=== PATIENT | female | born 1950 | race Hispanic/Latino ===

== ENCOUNTER 2022-05-02 09:05 | Inpatient (IN) | payer MEDICARE ==
[2022-05-02] MEDS ORDERED: SODIUM CHLORIDE 0.9% 500 ML 500 ML IV ONE ×2 (10:11→12:40)
--- NOTE | 2022-05-02 10:15 | Emergency Department Report ---
HPI - General Chief Complaint: GI Bleed Time Seen by Provider: 05/02/22 09:58 - HPI HPI: Room 25 The patient is a 71-year-old female present with chief complaint of GI bleed. Patient is resident of [facility] was sent for coffee-ground emesis and blood in her stool which began this morning. Patient also complains of diffuse abdominal pain which also began this morning. Patient denies chest pain or shortness of breath. Of note patient had a recent CABG but states she does not recall at which hospital it was performed ED Past Medical Hx - Past Medical History Hx Heart Attack/AMI: Yes - Surgical History Hx Open Heart Surgery: Yes (CABG) Additional Surgical History: Feeding tube, knee surgery - Family History Family history: no significant - Social History Smoking Status: Never Smoker Substance Use Type: None ED Review of Systems ROS: Stated complaint: NAUSEA/VOMITTING Other details as noted in HPI Constitutional: no symptoms reported Eyes: denies: eye pain ENT: denies: throat pain Respiratory: denies: shortness of breath Cardiovascular: denies: chest pain Endocrine: no symptoms reported Gastrointestinal: abdominal pain, nausea, vomiting, hematemesis, hematochezia Genitourinary: denies: dysuria Musculoskeletal: denies: back pain Neurological: denies: headache Physical Exam - Physical Exam Vital Signs: Vital Signs 05/02/22 09:36 Temperature 97.5 F L Pulse Rate 105 H Respiratory 18 Rate Blood Pressure 105/75 [Left] O2 Sat by Pulse 96 Oximetry Physical Exam: GENERAL: The patient is well-developed well-nourished female lying on stretcher not appearing to be in acute distress. [] HEENT: Normocephalic. Atraumatic. Extraocular motions are intact. Patient has moist mucous membranes. NECK: Supple. Trachea midline CHEST/LUNGS: Clear to auscultation. There is no respiratory distress noted. HEART/CARDIOVASCULAR: Regular. There is no tachycardia. There is no gallop rub or murmur. ABDOMEN: Abdomen is soft, with diffuse discomfort to palpation. Patient has normal bowel sounds. There is no abdominal distention. SKIN: There is no rash. There is no edema. There is no diaphoresis. NEURO: The patient is awake, alert, and oriented. The patient is cooperative. The patient has no focal neurologic deficits. The patient has normal speech. GCS 15 MUSCULOSKELETAL: There is no evidence of acute injury. 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 Suggests obtaining previous EKG from outside hospital 05/02/22 14:33 Case discussed with allied health professional Dr. Carl ED Medical Decision Making - Lab Data Result diagrams: 05/02/22 10:39 05/02/22 10:39 Laboratory Tests 05/02/22 05/02/22 05/02/22 10:19 10:39 10:39 WBC 15.3 H RBC 4.97 Hgb 14.9 H Hct 49.4 H MCV 99 H MCH 30 MCHC 30 RDW 16.6 H Plt Count 266 Add Manual Diff Complete Total Counted 100 Seg Neutrophils % Pole Framer Machine Seg Neuts % (Manual) 92.0 H Band Neutrophils % 2.0 Lymphocytes % (Manual) 2.0 L Reactive Lymphs % (Man) 0 Monocytes % (Manual) 4.0 Eosinophils % (Manual) 0 Basophils % (Manual) 0 Metamyelocytes % 0 Myelocytes % 0 Promyelocytes % 0 Blast Cells % 0 Nucleated RBC % Not Reportable Seg Neutrophils # Man 14.1 H Band Neutrophils # 0.3 Lymphocytes # (Manual) 0.3 L Abs React Lymphs (Man) 0.0 Monocytes # (Manual) 0.6 Eosinophils # (Manual) 0.0 Basophils # (Manual) 0.0 Metamyelocytes # 0.0 Myelocytes # 0.0 Promyelocytes # 0.0 Blast Cells # 0.0 WBC Morphology Not Reportable Hypersegmented Neuts Not Reportable Hyposegmented Neuts Not Reportable Hypogranular Neuts Not Reportable Smudge Cells Not Reportable Toxic Granulation Not Reportable Toxic Vacuolation Not Reportable Dohle Bodies Not Reportable Pelger-Huet Anomaly Not Reportable Neela Rods Not Reportable Platelet Estimate Consistent w auto Clumped Platelets Not Reportable Plt Clumps, EDTA Not Reportable Large Platelets Not Reportable Giant Platelets Not Reportable Platelet Satelliting Not Reportable Plt Morphology Comment Not Reportable RBC Morphology Not Reportable Dimorphic RBCs Not Reportable Polychromasia Not Reportable Hypochromasia Not Reportable Poikilocytosis Not Reportable Anisocytosis 1+ Microcytosis Not Reportable Macrocytosis Not Reportable Spherocytes Not Reportable Pappenheimer Bodies Not Reportable Sickle Cells Not Reportable Target Cells Not Reportable Tear Drop Cells Not Reportable Ovalocytes Not Reportable Helmet Cells Not Reportable Malhotra-Lilly Bodies Not Reportable [place] Rings Not Reportable Torreon Cells Not Reportable Bite Cells Not Reportable Crenated Cell Not Reportable Elliptocytes Not Reportable Acanthocytes (Spur) Not Reportable Rouleaux Not Reportable Hemoglobin C Crystals Not Reportable Schistocytes Not Reportable Malaria parasites Not Reportable Nitin Bodies Not Reportable Hem Pathologist Commnt No PT 23.7 H INR 1.81 H APTT 36.1 Sodium Potassium Chloride Carbon Dioxide Anion Gap BUN Creatinine Estimated GFR BUN/Creatinine Ratio Glucose Calcium Total Bilirubin AST ALT Alkaline Phosphatase Total Protein Albumin Albumin/Globulin Ratio Blood Type O NEGATIVE Antibody Screen Negative 05/02/22 10:39 WBC RBC Hgb Hct MCV MCH MCHC RDW Plt Count Add Manual Diff Total Counted Seg Neutrophils % Seg Neuts % (Manual) Band Neutrophils % Lymphocytes % (Manual) Reactive Lymphs % (Man) Monocytes % (Manual) Eosinophils % (Manual) Basophils % (Manual) Metamyelocytes % Myelocytes % Promyelocytes % Blast Cells % Nucleated RBC % Seg Neutrophils # Man Band Neutrophils # Lymphocytes # (Manual) Abs React Lymphs (Man) Monocytes # (Manual) Eosinophils # (Manual) Basophils # (Manual) Metamyelocytes # Myelocytes # Promyelocytes # Blast Cells # WBC Morphology Hypersegmented Neuts Hyposegmented Neuts Hypogranular Neuts Smudge Cells Toxic Granulation Toxic Vacuolation Dohle Bodies Pelger-Huet Anomaly Neela Rods Platelet Estimate Clumped Platelets Plt Clumps, EDTA Large Platelets Giant Platelets Platelet Satelliting Plt Morphology Comment RBC Morphology Dimorphic RBCs Polychromasia Hypochromasia Poikilocytosis Anisocytosis Microcytosis Macrocytosis Spherocytes Pappenheimer Bodies Sickle Cells Target Cells Tear Drop Cells Ovalocytes Helmet Cells Malhotra-Lilly Bodies [place] Rings Nicholas Cells Bite Cells Crenated Cell Elliptocytes Acanthocytes (Spur) Rouleaux Hemoglobin C Crystals Schistocytes Malaria parasites Nitin Bodies Hem Pathologist Commnt PT INR APTT Sodium 140 Potassium 3.5 L Chloride 102.0 Carbon Dioxide 18 L Anion Gap 24 BUN 30 H Creatinine 1.0 Estimated GFR 54 BUN/Creatinine Ratio 30 Glucose 130 H Calcium 9.6 Total Bilirubin 0.50 AST 19 ALT 9 Alkaline Phosphatase 102 Total Protein 5.6 L Albumin 3.5 L Albumin/Globulin Ratio 1.7 Blood Type Antibody Screen - EKG Data -: EKG Interpreted by Me EKG shows normal: sinus rhythm Rate: normal - EKG Data When compared to previous EKG there are: previous EKG unavailable Interpretation: nonspecific ST-T wave yovani - Differential Diagnosis GI bleed Critical care attestation.: If time is entered above; I have spent that time in minutes in the direct care of this critically ill patient, excluding procedure time. ED Disposition Clinical Impression: GI bleed Disposition: 09 ADMITTED INPATIENT Is pt being admited?: Yes Does the pt Need Aspirin: No Condition: Fair Referrals: ABRAHAM BROOKS MD [Primary Care Provider] - 3-5 Days Forms: Accompanied Note Time of Disposition: 14:34 (Care transferred to hospitalist (Dr. Escobar))
[2022-05-02 11:28] LABS: INR 1.81 (0.87-1.13); Partial Thromboplastin Time 36.1 Sec. (24.2-36.6)
[2022-05-02 11:29] LABS: Mean Corpuscular HGB Conc 30 % (30-34); Mean Corpuscular Volume 99 fl (79-97); Platelet Count 266 K/mm3 (140-440); Red Blood Count 4.97 M/mm3 (3.65-5.03); Red Cell Distribution Width 16.6 % (13.2-15.2)
[2022-05-02 11:30] LABS: Hematocrit 49.4 % (30.3-42.9); Hemoglobin 14.9 gm/dl (10.1-14.3)
[2022-05-02] MEDS ORDERED: MORPHINE 4 MG/1 ML INJ IV ONE (11:35)
[2022-05-02] MEDS ORDERED: ONDANSETRON 4 MG/2 ML INJ IV ONE (11:35)
[2022-05-02 11:39] LABS: Albumin 3.5 g/dL (3.9-5); Calcium 9.6 mg/dL (8.4-10.2)
[2022-05-02 12:35] LABS: Band Neutrophils # (Manual) 0.3 K/mm3; Basophils % (Manual) 0 % (0.0-1.8); Eosinophils % (Manual) 0 % (0.0-4.3); Total Cells Counted 100
[2022-05-02 12:36] LABS: Anisocytosis 1+; Platelet Estimate Consistent w Auto
[2022-05-02] MEDS ORDERED: PANTOPRAZOLE 40 MG INJ IV ONE (14:32)
[2022-05-02] MEDS ORDERED: ONDANSETRON 4 MG/2 ML INJ IV PRN (14:56)
[2022-05-02] MEDS ORDERED: MORPHINE 2 MG/1 ML INJ IV PRN (14:56)
[2022-05-02] MEDS ORDERED: ACETAMINOPHEN 325 MG TAB PO PRN ×2 (14:56→17:59)
--- NOTE | 2022-05-02 17:58 | History and Physical Report ---
History of Present Illness Date of examination: 05/02/22 Date of admission: 05/02/2024 Chief complaint: Vomiting blood since a.m. History of present illness: The patient is a 71-year-old female present with chief complaint of GI bleed. Patient is resident of [facility] was sent for coffee-ground emesis and blood in her stool which began this morning. Patient also complains of diffuse abdominal pain which also began this morning. Patient denies chest pain or s hortness of breath. Of note patient had a recent CABG but states she does not recall at which hospital it was performed - Past Medical History Hx Heart Attack/AMI: Yes - Surgical History Hx Open Heart Surgery: Yes (CABG) Additional Surgical History: Feeding tube, knee surgery - Family History Family history: no significant - Social History Smoking Status: Never Smoker Substance Use Type: None Review of Systems ROS: Stated complaint: NAUSEA/VOMITTING Other details as noted in HPI Constitutional: no symptoms reported Eyes: denies: eye pain ENT: denies: throat pain Respiratory: denies: shortness of breath Cardiovascular: denies: chest pain Endocrine: no symptoms reported Gastrointestinal: abdominal pain, nausea, vomiting, hematemesis, hematochezia Genitourinary: denies: dysuria Musculoskeletal: denies: back pain Neurological: denies: headache Medications and Allergies Allergies Allergy/AdvReac Type Severity Reaction Status Date / Time No Known Allergies Allergy Unverified 05/02/22 10:27 Active Meds: Active Medications Acetaminophen (Acetaminophen 325 Mg Tab) 650 mg PO Q4H PRN PRN Reason: Pain MILD(1-3)/Fever >100.5/RAMIREZ Pantoprazole Sodium 80 mg/ (Sodium Chloride) 100 mls @ 10 mls/hr IV DIRECT RENE Morphine Sulfate (Morphine 2 Mg/1 Ml Inj) 2 mg IV Q4H PRN PRN Reason: Pain, Moderate (4-6) Ondansetron HCl (Ondansetron 4 Mg/2 Ml Inj) 4 mg IV Q8H PRN PRN Reason: Nausea And Vomiting Sodium Chloride (Sodium Chloride 0.9% 10 Ml Flush Syringe) 10 ml IV BID RENE Sodium Chloride (Sodium Chloride 0.9% 10 Ml Flush Syringe) 10 ml IV PRN PRN PRN Reason: LINE FLUSH Exam - Constitutional Vitals: Temp Pulse Resp BP Pulse Ox 97.5 F L 97 H 18 103/63 95 05/02/22 09:36 05/02/22 15:00 05/02/22 15:00 05/02/22 15:00 05/02/22 15:00 General appearance: Present: no acute distress, well-nourished - EENT Eyes: Present: PERRL ENT: hearing intact, clear oral mucosa - Neck Neck: Present: supple, normal ROM - Respiratory Respiratory effort: normal Respiratory: bilateral: CTA - Cardiovascular Heart rate: 78 Rhythm: regular Heart Sounds: Present: S1 & S2. Absent: rub, click - Extremities Extremities: pulses symmetrical, No edema Peripheral Pulses: within normal limits - Abdominal General gastrointestinal: Present: soft, non-tender, non-distended, normal bowel sounds Female genitourinary: Present: normal - Integumentary Integumentary: Present: clear, warm, dry - Musculoskeletal Musculoskeletal: gait normal, strength equal bilaterally - Psychiatric Psychiatric: appropriate mood/affect, intact judgment & insight - Neurologic Neurologic: CNII-XII intact, moves all extremities - Allied Health Allied health notes reviewed: nursing, case management Results - Labs CBC & Chem 7: 05/02/22 20:26 05/02/22 10:39 Labs: Laboratory Last Values WBC 15.3 K/mm3 (4.5-11.0) H 05/02/22 10:39 RBC 4.97 M/mm3 (3.65-5.03) 05/02/22 10:39 Hgb 14.9 gm/dl (10.1-14.3) H 05/02/22 10:39 Hct 49.4 % (30.3-42.9) H 05/02/22 10:39 MCV 99 fl (79-97) H 05/02/22 10:39 MCH 30 pg (28-32) 05/02/22 10:39 MCHC 30 % (30-34) 05/02/22 10:39 RDW 16.6 % (13.2-15.2) H 05/02/22 10:39 Plt Count 266 K/mm3 (140-440) 05/02/22 10:39 Add Manual Diff Complete 05/02/22 10:39 Total Counted 100 05/02/22 10:39 Seg Neutrophils % Welder Assembler 05/02/22 10:39 Seg Neuts % (Manual) 92.0 % (40.0-70.0) H 05/02/22 10:39 Band Neutrophils % 2.0 % 05/02/22 10:39 Lymphocytes % (Manual) 2.0 % (13.4-35.0) L 05/02/22 10:39 Reactive Lymphs % (Man) 0 % 05/02/22 10:39 Monocytes % (Manual) 4.0 % (0.0-7.3) 05/02/22 10:39 Eosinophils % (Manual) 0 % (0.0-4.3) 05/02/22 10:39 Basophils % (Manual) 0 % (0.0-1.8) 05/02/22 10:39 Metamyelocytes % 0 % 05/02/22 10:39 Myelocytes % 0 % 05/02/22 10:39 Promyelocytes % 0 % 05/02/22 10:39 Blast Cells % 0 % 05/02/22 10:39 Nucleated RBC % Not Reportable 05/02/22 10:39 Seg Neutrophils # Man 14.1 K/mm3 (1.8-7.7) H 05/02/22 10:39 Band Neutrophils # 0.3 K/mm3 05/02/22 10:39 Lymphocytes # (Manual) 0.3 K/mm3 (1.2-5.4) L 05/02/22 10:39 Abs React Lymphs (Man) 0.0 K/mm3 05/02/22 10:39 Monocytes # (Manual) 0.6 K/mm3 (0.0-0.8) 05/02/22 10:39 Eosinophils # (Manual) 0.0 K/mm3 (0.0-0.4) 05/02/22 10:39 Basophils # (Manual) 0.0 K/mm3 (0.0-0.1) 05/02/22 10:39 Metamyelocytes # 0.0 K/mm3 05/02/22 10:39 Myelocytes # 0.0 K/mm3 05/02/22 10:39 Promyelocytes # 0.0 K/mm3 05/02/22 10:39 Blast Cells # 0.0 K/mm3 05/02/22 10:39 WBC Morphology Not Reportable 05/02/22 10:39 Hypersegmented Neuts Not Reportable 05/02/22 10:39 Hyposegmented Neuts Not Reportable 05/02/22 10:39 Hypogranular Neuts Not Reportable 05/02/22 10:39 Smudge Cells Not Reportable 05/02/22 10:39 Toxic Granulation Not Reportable 05/02/22 10:39 Toxic Vacuolation Not Reportable 05/02/22 10:39 Dohle Bodies Not Reportable 05/02/22 10:39 Pelger-Huet Anomaly Not Reportable 05/02/22 10:39 Neela Rods Not Reportable 05/02/22 10:39 Platelet Estimate Consistent w auto 05/02/22 10:39 Clumped Platelets Not Reportable 05/02/22 10:39 Plt Clumps, EDTA Not Reportable 05/02/22 10:39 Large Platelets Not Reportable 05/02/22 10:39 Giant Platelets Not Reportable 05/02/22 10:39 Platelet Satelliting Not Reportable 05/02/22 10:39 Plt Morphology Comment Not Reportable 05/02/22 10:39 RBC Morphology Not Reportable 05/02/22 10:39 Dimorphic RBCs Not Reportable 05/02/22 10:39 Polychromasia Not Reportable 05/02/22 10:39 Hypochromasia Not Reportable 05/02/22 10:39 Poikilocytosis Not Reportable 05/02/22 10:39 Anisocytosis 1+ 05/02/22 10:39 Microcytosis Not Reportable 05/02/22 10:39 Macrocytosis Not Reportable 05/02/22 10:39 Spherocytes Not Reportable 05/02/22 10:39 Pappenheimer Bodies Not Reportable 05/02/22 10:39 Sickle Cells Not Reportable 05/02/22 10:39 Target Cells Not Reportable 05/02/22 10:39 Tear Drop Cells Not Reportable 05/02/22 10:39 Ovalocytes Not Reportable 05/02/22 10:39 Helmet Cells Not Reportable 05/02/22 10:39 Malhotra-Noonday Bodies Not Reportable 05/02/22 10:39 [place] Rings Not Reportable 05/02/22 10:39 Nicholas Cells Not Reportable 05/02/22 10:39 Bite Cells Not Reportable 05/02/22 10:39 Crenated Cell Not Reportable 05/02/22 10:39 Elliptocytes Not Reportable 05/02/22 10:39 Acanthocytes (Spur) Not Reportable 05/02/22 10:39 Rouleaux Not Reportable 05/02/22 10:39 Hemoglobin C Crystals Not Reportable 05/02/22 10:39 Schistocytes Not Reportable 05/02/22 10:39 Malaria parasites Not Reportable 05/02/22 10:39 Nitin Bodies Not Reportable 05/02/22 10:39 Hem Pathologist Commnt No 05/02/22 10:39 PT 23.7 Sec. (12.2-14.9) H 05/02/22 10:39 INR 1.81 (0.87-1.13) H 05/02/22 10:39 APTT 36.1 Sec. (24.2-36.6) 05/02/22 10:39 Sodium 140 mmol/L (137-145) 05/02/22 10:39 Potassium 3.5 mmol/L (3.6-5.0) L 05/02/22 10:39 Chloride 102.0 mmol/L (98-107) 05/02/22 10:39 Carbon Dioxide 18 mmol/L (22-30) L 05/02/22 10:39 Anion Gap 24 mmol/L 05/02/22 10:39 BUN 30 mg/dL (7-17) H 05/02/22 10:39 Creatinine 1.0 mg/dL (0.6-1.2) 05/02/22 10:39 Estimated GFR 54 ml/min 05/02/22 10:39 BUN/Creatinine Ratio 30 % 05/02/22 10:39 Glucose 130 mg/dL (65-100) H 05/02/22 10:39 Calcium 9.6 mg/dL (8.4-10.2) 05/02/22 10:39 Total Bilirubin 0.50 mg/dL (0.1-1.2) 05/02/22 10:39 AST 19 units/L (5-40) 05/02/22 10:39 ALT 9 units/L (7-56) 05/02/22 10:39 Alkaline Phosphatase 102 units/L (35-129) 05/02/22 10:39 Total Protein 5.6 g/dL (6.3-8.2) L 05/02/22 10:39 Albumin 3.5 g/dL (3.9-5) L 05/02/22 10:39 Albumin/Globulin Ratio 1.7 % 05/02/22 10:39 Blood Type O NEGATIVE 05/02/22 10:19 Antibody Screen Negative 05/02/22 10:19 Microbiology: Microbiology 05/02/22 Unknown Stool Stool Occult Blood (TACOS) - Final Assessment and Plan Advance Directives: Yes (Full code) VTE prophylaxis?: Mechanical Plan of care discussed with patient/family: Yes - Patient Problems (1) GI bleed Current Visit: Yes Status: Acute Plan to address problem: Patient initiated on IV Protonix drip IV fluids and GI consult requested Serial hemoglobin and hematocrit every 8 hours (2) Hypokalemia Current Visit: Yes Status: Acute Plan to address problem: Mild Supplemented (3) Coronary artery disease Current Visit: Yes Status: Chronic Qualifiers: Coronary Disease-Associated Artery/Lesion type: [place] artery [place] vs. transplanted heart: [place] heart Associated angina: without angina Qualified Code(s): I25.10 - Atherosclerotic heart disease of [place] coronary artery without angina pectoris Plan to address problem: Hold aspirin for now (4) Malnutrition Current Visit: Yes Status: Acute Qualifiers: Protein-calorie malnutrition severity: mild Plan to address problem: Albumin of 3.5 Dietary supplements once the patient starts eating (5) DVT prophylaxis Current Visit: Yes Status: Acute Plan to address problem: On SCDs and GI prophylaxis (6) Advance care planning Current Visit: Yes Status: Acute Plan to address problem: Disease education conducted, care plan discussed, diagnosis and prognosis discussed. Patient is full code. Patient acknowledged understanding of care plan. +30 minutes.
[2022-05-02] MEDS: PANTOPRAZOLE 80 MG in SODIUM CHLORIDE 0.9% 100 ML IV SCH (18:14)
[2022-05-02] MEDS ORDERED: SODIUM CHLORIDE 0.9% 1000 ML 1,000 ML IV SCH (18:15)
--- NOTE | 2022-05-02 19:18 | Gastroenterology Consultation ---
History of Present Illness - Reason for Consult Consult date: 05/02/22 GI bleed Requesting physician: ESTEBAN CALIXTO - History of Present Illness This is a 71-year-old female with history of tobacco abuse, recent RCA STEMI and emergent CABG at [facility] in March 2022. Presenting from detention today for symptoms of GI bleed including coffee-ground emesis. Review of outside records shows patient was admitted [facility] in February 2022 for RCA STEMI and underwent emergent CABG. Hospital course complicated with cardiogenic shock and sepsis. Patient under went tracheostomy as well as PEG placement for prolonged respiratory failure. Patient also noted to have had C. difficile infection during the hospitalization. Patient underwent percutaneous endoscopic gastrostomy on March 18, 2022 for prolonged respiratory failure. Findings showed gastritis without focal ulceration or erosions. Normal duodenum and normal esophagus noted. Today patient reports having intermittent nausea even during the initial hospitalization with CABG. Noted to also have black tarry stool yesterday. In the emergency room, patient noted to have recurrent episode of coffee-ground emesis this evening. Patient complains of diffuse abdominal pain. Per patient, no prior history of colonoscopy. Medication list reviewed. Past History Past Medical History: CAD Past Surgical History: CABG Social history: other (detention) Family history: hypertension Medications and Allergies Allergies Allergy/AdvReac Type Severity Reaction Status Date / Time No Known Allergies Allergy Unverified 05/02/22 10:27 Active Meds: Active Medications Acetaminophen (Acetaminophen 325 Mg Tab) 650 mg PO Q4H PRN PRN Reason: Pain MILD(1-3)/Fever >100.5/RAMIREZ Acetaminophen (Acetaminophen 325 Mg Tab) 650 mg PO Q4H PRN PRN Reason: Pain MILD(1-3)/Fever >100.5/RAMIREZ Pantoprazole Sodium 80 mg/ (Sodium Chloride) 100 mls @ 10 mls/hr IV DIRECT RENE Last Admin: 05/02/22 18:14 Dose: 8 mg/hr, 10 mls/hr Sodium Chloride (Nacl 0.9% 1000 Ml) 1,000 mls @ 75 mls/hr IV DIRECT RENE Morphine Sulfate (Morphine 2 Mg/1 Ml Inj) 2 mg IV Q4H PRN PRN Reason: Pain, Moderate (4-6) Ondansetron HCl (Ondansetron 4 Mg/2 Ml Inj) 4 mg IV Q8H PRN PRN Reason: Nausea And Vomiting Ondansetron HCl (Ondansetron 4 Mg/2 Ml Inj) 4 mg IV Q3H PRN PRN Reason: Nausea And Vomiting Sodium Chloride (Sodium Chloride 0.9% 10 Ml Flush Syringe) 10 ml IV BID RENE Sodium Chloride (Sodium Chloride 0.9% 10 Ml Flush Syringe) 10 ml IV PRN PRN PRN Reason: LINE FLUSH Sodium Chloride (Sodium Chloride 0.9% 10 Ml Flush Syringe) 10 ml IV BID RENE Sodium Chloride (Sodium Chloride 0.9% 10 Ml Flush Syringe) 10 ml IV PRN PRN PRN Reason: LINE FLUSH Review of Systems - Review of Systems Constitutional: weakness, poor appetite Ears, Nose, Throat: no difficulty swallowing Cardiovascular: no chest pain Gastrointestinal: abdominal pain, nausea, vomiting, melena, no hematochezia Neurological: weakness Psychiatric: anxiety Hematologic/Lymphatic: easy bruising, no easy bleeding Allergic/Immunologic: no wheezing, no angioedema Exam - Constitutional Vital Signs: Temp Pulse Resp BP Pulse Ox 97.5 F L 94 H 20 113/72 96 05/02/22 09:36 05/02/22 18:00 05/02/22 18:00 05/02/22 18:00 05/02/22 18:00 General appearance: mild distress - EENT ENT: hearing intact - Neck Neck: supple, other (Prior tracheostomy site in place) - Respiratory Respiratory effort: normal - Cardiovascular Rhythm: regular Heart Sounds: Present: S1 & S2 - Gastrointestinal General gastrointestinal: Present: soft, tender, non-distended - Integumentary Integumentary: Present: clear, warm - Neurologic Neurological: alert and oriented x3 - Psychiatric Psychiatric: appropriate mood/affect - Labs CBC & Chem 7: 05/02/22 10:39 05/02/22 10:39 Lab Results: Laboratory Results - last 24 hr 05/02/22 05/02/22 05/02/22 10:19 10:39 10:39 WBC 15.3 H RBC 4.97 Hgb 14.9 H Hct 49.4 H MCV 99 H MCH 30 MCHC 30 RDW 16.6 H Plt Count 266 Add Manual Diff Complete Total Counted 100 Seg Neutrophils % Turret Press Operator Seg Neuts % (Manual) 92.0 H Band Neutrophils % 2.0 Lymphocytes % (Manual) 2.0 L Reactive Lymphs % (Man) 0 Monocytes % (Manual) 4.0 Eosinophils % (Manual) 0 Basophils % (Manual) 0 Metamyelocytes % 0 Myelocytes % 0 Promyelocytes % 0 Blast Cells % 0 Nucleated RBC % Not Reportable Seg Neutrophils # Man 14.1 H Band Neutrophils # 0.3 Lymphocytes # (Manual) 0.3 L Abs React Lymphs (Man) 0.0 Monocytes # (Manual) 0.6 Eosinophils # (Manual) 0.0 Basophils # (Manual) 0.0 Metamyelocytes # 0.0 Myelocytes # 0.0 Promyelocytes # 0.0 Blast Cells # 0.0 WBC Morphology Not Reportable Hypersegmented Neuts Not Reportable Hyposegmented Neuts Not Reportable Hypogranular Neuts Not Reportable Smudge Cells Not Reportable Toxic Granulation Not Reportable Toxic Vacuolation Not Reportable Dohle Bodies Not Reportable Pelger-Huet Anomaly Not Reportable Neela Rods Not Reportable Platelet Estimate Consistent w auto Clumped Platelets Not Reportable Plt Clumps, EDTA Not Reportable Large Platelets Not Reportable Giant Platelets Not Reportable Platelet Satelliting Not Reportable Plt Morphology Comment Not Reportable RBC Morphology Not Reportable Dimorphic RBCs Not Reportable Polychromasia Not Reportable Hypochromasia Not Reportable Poikilocytosis Not Reportable Anisocytosis 1+ Microcytosis Not Reportable Macrocytosis Not Reportable Spherocytes Not Reportable Pappenheimer Bodies Not Reportable Sickle Cells Not Reportable Target Cells Not Reportable Tear Drop Cells Not Reportable Ovalocytes Not Reportable Helmet Cells Not Reportable Malhotra-[place] Bodies Not Reportable [place] Rings Not Reportable Nicholas Cells Not Reportable Bite Cells Not Reportable Crenated Cell Not Reportable Elliptocytes Not Reportable Acanthocytes (Spur) Not Reportable Rouleaux Not Reportable Hemoglobin C Crystals Not Reportable Schistocytes Not Reportable Malaria parasites Not Reportable Nitin Bodies Not Reportable Hem Pathologist Commnt No PT 23.7 H INR 1.81 H APTT 36.1 Sodium Potassium Chloride Carbon Dioxide Anion Gap BUN Creatinine Estimated GFR BUN/Creatinine Ratio Glucose Calcium Total Bilirubin AST ALT Alkaline Phosphatase Total Protein Albumin Albumin/Globulin Ratio Blood Type O NEGATIVE Antibody Screen Negative 05/02/22 10:39 WBC RBC Hgb Hct MCV MCH MCHC RDW Plt Count Add Manual Diff Total Counted Seg Neutrophils % Seg Neuts % (Manual) Band Neutrophils % Lymphocytes % (Manual) Reactive Lymphs % (Man) Monocytes % (Manual) Eosinophils % (Manual) Basophils % (Manual) Metamyelocytes % Myelocytes % Promyelocytes % Blast Cells % Nucleated RBC % Seg Neutrophils # Man Band Neutrophils # Lymphocytes # (Manual) Abs React Lymphs (Man) Monocytes # (Manual) Eosinophils # (Manual) Basophils # (Manual) Metamyelocytes # Myelocytes # Promyelocytes # Blast Cells # WBC Morphology Hypersegmented Neuts Hyposegmented Neuts Hypogranular Neuts Smudge Cells Toxic Granulation Toxic Vacuolation Dohle Bodies Pelger-Huet Anomaly Neela Rods Platelet Estimate Clumped Platelets Plt Clumps, EDTA Large Platelets Giant Platelets Platelet Satelliting Plt Morphology Comment RBC Morphology Dimorphic RBCs Polychromasia Hypochromasia Poikilocytosis Anisocytosis Microcytosis Macrocytosis Spherocytes Pappenheimer Bodies Sickle Cells Target Cells Tear Drop Cells Ovalocytes Helmet Cells Malhotra-[place] Bodies [place] Rings Nicholas Cells Bite Cells Crenated Cell Elliptocytes Acanthocytes (Spur) Rouleaux Hemoglobin C Crystals Schistocytes Malaria parasites Nitin Bodies Hem Pathologist Commnt PT INR APTT Sodium 140 Potassium 3.5 L Chloride 102.0 Carbon Dioxide 18 L Anion Gap 24 BUN 30 H Creatinine 1.0 Estimated GFR 54 BUN/Creatinine Ratio 30 Glucose 130 H Calcium 9.6 Total Bilirubin 0.50 AST 19 ALT 9 Alkaline Phosphatase 102 Total Protein 5.6 L Albumin 3.5 L Albumin/Globulin Ratio 1.7 Blood Type Antibody Screen Assessment and Plan # Upper GI bleed - coffee ground emesis/melena -Recent CABG in February 2022 at [facility] complicated with prolonged respiratory failure status post trach and PEG placement. Currently not using the PEG tube for feeding. -Hemodynamically stable. -Differentials for GI bleed source including peptic ulcer disease, gastritis, esophagitis, Betina-Mccallum tear. Previous exam doing PEG placement showed gastritis but no findings in the esophagus or duodenum in March 2022. rec: -Continue with PPI IV drip. -Monitor for signs of active GI bleeding. -Monitor H&H serially and transfuse as needed. -Recommend CT abdomen pelvis for evaluation for abdominal pain. CT was ordered. -Recommend cardiology evaluation for cardiac clearance for endoscopy with sedation. -We will plan for EGD tomorrow. N.p.o. after midnight. - Patient Problems (1) GI bleed Current Visit: Yes Status: Acute
[2022-05-02 21:10] LABS: Hematocrit 47.2 % (30.3-42.9); Hemoglobin 15.1 gm/dl (10.1-14.3)
--- NOTE | 2022-05-02 21:55 | Cat Scan Report ---
CT ABDOMEN AND PELVIS WITH CONTRAST INDICATION / CLINICAL INFORMATION: GI bleed, abdominal pain. TECHNIQUE: Axial CT images were obtained through the abdomen and pelvis after 100 cc Omnipaque [address] scans at this location are performed using CT dose reduction for ALARA by means of automated exposure control. COMPARISON: None available. FINDINGS: LOWER CHEST: No significant abnormality. LIVER: Left hepatic lobe cysts measure up to 1.2 cm. No other significant abnormality. GALLBLADDER: Cholelithiasis is noted with mild distention of the gallbladder. Trace fluid is seen bea ng the gallbladder fundus. No significant wall thickening is identified. BILE DUCTS: There is moderate biliary ductal dilatation with the common duct measuring 18 mm on image 69 of series 2. Questionable choledocholithiasis is seen distally along the common bile duct. PANCREAS: No significant abnormality. SPLEEN: No significant abnormality. ADRENALS: There is adrenal hyperplasia without visualization of a suspicious nodule or mass. RIGHT KIDNEY/URETER: No significant abnormality. LEFT KIDNEY/URETER: No significant abnormality. STOMACH/SMALL BOWEL: There is an uncomplicated small hiatal hernia without other significant abnormal ities. There is expected positioning of a PEG tube. COLON: The colon contains a large amount of stool with secondary distention of the rectum and moderat e surrounding inflammation. No other significant abnormality. APPENDIX: No significant abnormality. PERITONEUM: No free fluid. No free air. No fluid collection. LYMPH NODES: No significant adenopathy. VASCULATURE: No acute findings. There is moderate atherosclerosis. URINARY BLADDER: A small amount of air within the bladder could be related to recent catheterization. No other significant abnormality. REPRODUCTIVE ORGANS: A probable small calcified uterine fibroid is seen posteriorly along the fundus. No other significant abnormality. ADDITIONAL FINDINGS: None. BONES: No acute findings. The bones are demineralized with moderate scoliosis and spondylosis. IMPRESSION: 1. Evidence of constipation with possible stercoral colitis. No evidence of an acute GI bleed. 2. Additional findings as above. Signer Name: Brien Burch MD Signed: 05/02/2022 9:51 PM Workstation Name: [id number]
[2022-05-03] MEDS: PANTOPRAZOLE 80 MG in SODIUM CHLORIDE 0.9% 100 ML IV SCH (03:30)
[2022-05-03 08:16] LABS: Hematocrit 46.7 % (30.3-42.9); Mean Corpuscular HGB Conc 32 % (30-34); Mean Corpuscular Volume 98 fl (79-97); Platelet Count 221 K/mm3 (140-440); Red Blood Count 4.76 M/mm3 (3.65-5.03); Red Cell Distribution Width 16.5 % (13.2-15.2)
[2022-05-03 08:25] LABS: INR 2.18 (0.87-1.13)
[2022-05-03 08:33] LABS: Calcium 8.5 mg/dL (8.4-10.2)
[2022-05-03] MEDS ORDERED: DEXTROSE 5% IN WATER 1,000 ML IV SCH (09:00)
--- NOTE | 2022-05-03 09:18 | Anesthesia Consultation ---
Anesthesia Consult and Med Hx Date of service: 05/03/22 - Airway Anesthetic Teeth Evaluation: Edentulous ROM Head & Neck: Adequate Mental/Hyoid Distance: Adequate Mallampati Class: Class II Intubation Access Assessment: Probably Good - Pre-Operative Health Status ASA Pre-Surgery Classification: ASA4 Proposed Anesthetic Plan: MAC - Pulmonary Hx Smoking: No Hx Asthma: No Hx Respiratory Symptoms: Yes (h/o respiratory failure, tracheostomy (03/30), trach removed later) SOB: Yes COPD: No Hx Pneumonia: Yes Hx Sleep Apnea: No - Cardiovascular System Hx Coronary Artery Disease: Yes Hx Heart Attack/AMI: Yes (Acute [place] in February 2022, s/p CABG) - Central Nervous System Hx Psychiatric Problems: Yes (panic attacks) - Gastrointestinal Hx Ulcer: Yes (PEG in place, GI bleed) - Endocrine Hx End Stage Renal Disease: No - Hematic Hx Anemia: No Hx Sickle Cell Disease: No - Other Systems Hx Alcohol Use: No Hx Substance Use: No Hx Cancer: No
--- NOTE | 2022-05-03 09:22 | Anesthesia Day of Surgery ---
Anesthesia Day of Surgery - Day of Surgery Patient Examined: Yes Patient H&P Reviewed: Yes Patient is NPO: Yes
[2022-05-03] MEDS ORDERED: propofoL 200 MG/20 ML VIAL IV ONE (09:25)
[2022-05-03] MEDS ORDERED: EPINEPHrine 1 MG/10 ML SYRINGE ONE (09:56)
[2022-05-03] MEDS ORDERED: SODIUM CHLORIDE 0.9% 1000 ML 1,000 ML ONE (09:56)
[2022-05-03] MEDS ORDERED: PHENYLEPHRINE/NS 1,000 MCG/10 ML SYRINGE (OR USE) IV ONE (10:11)
--- NOTE | 2022-05-03 10:52 | Electrocardiograph Report ---
[facility] Test Date: 2022-05-02 Test Time: 09:52:01 Pat Name: AUNDREA HATHAWAY Department: Room: A365 1 Gender: F Circuit Manager: NURSE : 1950 Requested By: ESTEBAN CALIXTO Order Number: [id number] Reading MD: Joce Abrams Measurements Intervals [place]win Rate: 128 P: 232 ID: [id number] QRS: -52 QRSD: 89 T: 228 QT: 335 QTc: 490 Interpretive Statements Ectopic atrial tachycardia Anterolateral infarct, age indeterminate Inferior infarct, age undetermined No previous ECG available for comparison Electronically Signed On 05-03-2022 10:52:16 EDT by Joce Abrams
--- NOTE | 2022-05-03 11:00 | Operative Report ---
Operative Report Operative Report: Date: 05/03/2022 Endoscopist: Peng Carl MD (Jenny) EGD REPORT PREOPERATIVE DIAGNOSIS: GI bleed, hematemesis POSTOPERATIVE DIAGNOSIS: Diffuse gastritis ESTIMATED BLOOD LOSS: Minimal DESCRIPTION OF PROCEDURE: A high-resolution EGD scope was passed through the oropharynx, esophagus, stomach, and second portion of duodenum. The scope was carefully withdrawn. Retroflexion was performed in the stomach. At the end of the procedure, the scope was cleaned using normal technique. Vital signs monitored continuously throughout. SEDATION: Provided by Anesthesiology Services. COMPLICATIONS: None. FINDINGS: 1. Normal esophagus exam without any gross abnormalities. 2. Diffuse erosive gastritis in the gastric body and fundus noted friable mucosa. Biopsies not obtained due to recent anticoagulation use. 3. Previously placed PEG tube noted in the gastric body. No surrounding ulceration or erosion noted. 4. Normal duodenal exam. 5. No signs of active bleeding. RECOMMENDATIONS: 1. Resume clear liquid diet. 2. Continue to monitor H&H serially and transfuse as needed. 3. Monitor for any signs of recurrent bleeding. 4. Continue with PPI IV. 5. Okay to resume anticoagulation as needed. 6. Check for H. pylori and treat as needed. Peng Carl MD (Jenny) [facility]
--- NOTE | 2022-05-03 11:05 | Post Anesthesia Evaluation ---
- Post Anesthesia Evaluation Patient Participated: Yes Airway Patent: Yes Stable Respiratory Function: Yes Nausea/Vomiting: No Temp > 96.8F: Yes Pain Manageable: Yes Adequeate Hydration: Yes Anesthesia Complications: No Block Receding Appropriately: Not Applicable Patient on Ventilator: No
[2022-05-03] MEDS ORDERED: WATER FOR IRRIG STERILE 1,000 ML BOTTLE ONE (11:07)
[2022-05-03] MEDS ORDERED: WATER FOR IRRIG STERILE 250 ML BOTTLE IR ONE (11:07)
[2022-05-03] MEDS: PANTOPRAZOLE 40 MG INJ IV SCH ×2 (12:00→22:03)
[2022-05-03 12:09] LABS: Hematocrit 46.4 % (30.3-42.9); Hemoglobin 14.6 gm/dl (10.1-14.3)
--- NOTE | 2022-05-03 13:16 | Progress Note ---
Assessment and Plan Assessment and plan: #Upper GI bleed #Hematemesis Hemoglobin 15.0 Gastroenterology consulted; appreciate recs Upper endoscopy (05/03/2022) revealing normal esophagus, diffuse erosive ga stritis in the gastric body and fundus with notable friable mucosa (biopsies not obtained due to recent anticoagulation use), normal duodenum, no signs of active bleeding. Continue IV pantoprazole 40 mg twice daily. Starting clear liquid diet. Testing for H. pylori. #INES secondary to vasomotor nephropathy Creatinine 1.5 (baseline unremarkable) Likely secondary to decreased p.o. intake. Renally dose meds and avoid nephrotoxic drugs. Encouraging p.o. intake. Monitor with repeat BMP tomorrow. #Hypokalemiaresolved Potassium currently 3.9 #Coronary artery disease We will restart aspirin when patient is on regular diet. #Mild protein caloric malnutrition Albumin 3.0 Starting dietary supplementation #Advanced care planning -Disease education conducted, care plan discussed, diagnoses discussed, prognosis discussed, and patient acknowledges understanding with care plan -Time: +30 min Disposition Plan: Continue medical management Total Time Spent with Patient (Minutes): 45 minutes History Interval history: No acute events overnight. Hospitalist Physical - Constitutional Vitals: Temp Pulse Resp BP Pulse Ox 98.8 F 50 L 24 154/65 98 05/03/22 11:22 05/03/22 11:22 05/03/22 11:22 05/03/22 11:22 05/03/22 11:22 General appearance: Present: no acute distress, well-nourished - EENT Eyes: Present: PERRL, EOM intact ENT: hearing intact, clear oral mucosa, dentition normal - Neck Neck: Present: supple, normal ROM - Respiratory Respiratory effort: normal Respiratory: bilateral: CTA - Cardiovascular Rhythm: regular Heart Sounds: Present: S1 & S2 - Extremities Extremities: no ischemia, pulses intact, pulses symmetrical, No edema, normal temperature, normal color Peripheral Pulses: within normal limits - Abdominal General gastrointestinal: soft, non-tender, non-distended, normal bowel sounds - Integumentary Integumentary: Present: clear, warm, dry - Psychiatric Psychiatric: appropriate mood/affect, intact judgment & insight, cooperative - Neurologic Neurologic: CNII-XII intact, moves all extremities - Allied Health Allied health notes reviewed: nursing Results - Labs CBC & Chem 7: 05/03/22 10:00 05/03/22 07:00 Labs: Laboratory Last Values WBC 11.3 K/mm3 (4.5-11.0) H 05/03/22 07:00 RBC 4.76 M/mm3 (3.65-5.03) 05/03/22 07:00 Hgb 14.6 gm/dl (10.1-14.3) H 05/03/22 10:00 Hct 46.4 % (30.3-42.9) H 05/03/22 10:00 MCV 98 fl (79-97) H 05/03/22 07:00 MCH 32 pg (28-32) 05/03/22 07:00 MCHC 32 % (30-34) 05/03/22 07:00 RDW 16.5 % (13.2-15.2) H 05/03/22 07:00 Plt Count 221 K/mm3 (140-440) 05/03/22 07:00 Add Manual Diff Complete 05/02/22 10:39 Total Counted 100 05/02/22 10:39 Seg Neutrophils % Storage Management Consultant 05/02/22 10:39 Seg Neuts % (Manual) 92.0 % (40.0-70.0) H 05/02/22 10:39 Band Neutrophils % 2.0 % 05/02/22 10:39 Lymphocytes % (Manual) 2.0 % (13.4-35.0) L 05/02/22 10:39 Reactive Lymphs % (Man) 0 % 05/02/22 10:39 Monocytes % (Manual) 4.0 % (0.0-7.3) 05/02/22 10:39 Eosinophils % (Manual) 0 % (0.0-4.3) 05/02/22 10:39 Basophils % (Manual) 0 % (0.0-1.8) 05/02/22 10:39 Metamyelocytes % 0 % 05/02/22 10:39 Myelocytes % 0 % 05/02/22 10:39 Promyelocytes % 0 % 05/02/22 10:39 Blast Cells % 0 % 05/02/22 10:39 Nucleated RBC % Not Reportable 05/02/22 10:39 Seg Neutrophils # Man 14.1 K/mm3 (1.8-7.7) H 05/02/22 10:39 Band Neutrophils # 0.3 K/mm3 05/02/22 10:39 Lymphocytes # (Manual) 0.3 K/mm3 (1.2-5.4) L 05/02/22 10:39 Abs React Lymphs (Man) 0.0 K/mm3 05/02/22 10:39 Monocytes # (Manual) 0.6 K/mm3 (0.0-0.8) 05/02/22 10:39 Eosinophils # (Manual) 0.0 K/mm3 (0.0-0.4) 05/02/22 10:39 Basophils # (Manual) 0.0 K/mm3 (0.0-0.1) 05/02/22 10:39 Metamyelocytes # 0.0 K/mm3 05/02/22 10:39 Myelocytes # 0.0 K/mm3 05/02/22 10:39 Promyelocytes # 0.0 K/mm3 05/02/22 10:39 Blast Cells # 0.0 K/mm3 05/02/22 10:39 WBC Morphology Not Reportable 05/02/22 10:39 Hypersegmented Neuts Not Reportable 05/02/22 10:39 Hyposegmented Neuts Not Reportable 05/02/22 10:39 Hypogranular Neuts Not Reportable 05/02/22 10:39 Smudge Cells Not Reportable 05/02/22 10:39 Toxic Granulation Not Reportable 05/02/22 10:39 Toxic Vacuolation Not Reportable 05/02/22 10:39 Dohle Bodies Not Reportable 05/02/22 10:39 Pelger-Huet Anomaly Not Reportable 05/02/22 10:39 Neela Rods Not Reportable 05/02/22 10:39 Platelet Estimate Consistent w auto 05/02/22 10:39 Clumped Platelets Not Reportable 05/02/22 10:39 Plt Clumps, EDTA Not Reportable 05/02/22 10:39 Large Platelets Not Reportable 05/02/22 10:39 Giant Platelets Not Reportable 05/02/22 10:39 Platelet Satelliting Not Reportable 05/02/22 10:39 Plt Morphology Comment Not Reportable 05/02/22 10:39 RBC Morphology Not Reportable 05/02/22 10:39 Dimorphic RBCs Not Reportable 05/02/22 10:39 Polychromasia Not Reportable 05/02/22 10:39 Hypochromasia Not Reportable 05/02/22 10:39 Poikilocytosis Not Reportable 05/02/22 10:39 Anisocytosis 1+ 05/02/22 10:39 Microcytosis Not Reportable 05/02/22 10:39 Macrocytosis Not Reportable 05/02/22 10:39 Spherocytes Not Reportable 05/02/22 10:39 Pappenheimer Bodies Not Reportable 05/02/22 10:39 Sickle Cells Not Reportable 05/02/22 10:39 Target Cells Not Reportable 05/02/22 10:39 Tear Drop Cells Not Reportable 05/02/22 10:39 Ovalocytes Not Reportable 05/02/22 10:39 Helmet Cells Not Reportable 05/02/22 10:39 Malhotra-[place] Bodies Not Reportable 05/02/22 10:39 Evangeline Rings Not Reportable 05/02/22 10:39 Nicholas Cells Not Reportable 05/02/22 10:39 Bite Cells Not Reportable 05/02/22 10:39 Crenated Cell Not Reportable 05/02/22 10:39 Elliptocytes Not Reportable 05/02/22 10:39 Acanthocytes (Spur) Not Reportable 05/02/22 10:39 Rouleaux Not Reportable 05/02/22 10:39 Hemoglobin C Crystals Not Reportable 05/02/22 10:39 Schistocytes Not Reportable 05/02/22 10:39 Malaria parasites Not Reportable 05/02/22 10:39 Nitin Bodies Not Reportable 05/02/22 10:39 Hem Pathologist Commnt No 05/02/22 10:39 PT 27.7 Sec. (12.2-14.9) H 05/03/22 07:00 INR 2.18 (0.87-1.13) H 05/03/22 07:00 APTT 36.1 Sec. (24.2-36.6) 05/02/22 10:39 Sodium 145 mmol/L (137-145) 05/03/22 07:00 Potassium 3.9 mmol/L (3.6-5.0) 05/03/22 07:00 Chloride 106.5 mmol/L (98-107) 05/03/22 07:00 Carbon Dioxide 19 mmol/L (22-30) L 05/03/22 07:00 Anion Gap 23 mmol/L 05/03/22 07:00 BUN 57 mg/dL (7-17) H 05/03/22 07:00 Creatinine 1.5 mg/dL (0.6-1.2) H 05/03/22 07:00 Estimated GFR 34 ml/min 05/03/22 07:00 BUN/Creatinine Ratio 38 % 05/03/22 07:00 Glucose 118 mg/dL (65-100) H 05/03/22 07:00 Calcium 8.5 mg/dL (8.4-10.2) 05/03/22 07:00 Total Bilirubin 0.70 mg/dL (0.1-1.2) 05/03/22 07:00 AST 16 units/L (5-40) 05/03/22 07:00 ALT 9 units/L (7-56) 05/03/22 07:00 Alkaline Phosphatase 117 units/L (35-129) 05/03/22 07:00 Total Protein 5.0 g/dL (6.3-8.2) L 05/03/22 07:00 Albumin 3.0 g/dL (3.9-5) L 05/03/22 07:00 Albumin/Globulin Ratio 1.5 % 05/03/22 07:00 Blood Type O NEGATIVE 05/02/22 10:19 Antibody Screen Negative 05/02/22 10:19 Microbiology: Microbiology 05/02/22 Unknown Stool Stool Occult Blood (TACOS) - Final Fitzgerald/IV: Voiding Method External Female Catheter Active Medications - Current Medications Current Medications: Generic Name Dose Route Start Last Admin Trade Name Freq PRN Reason Stop Dose Admin Acetaminophen 650 mg 05/02/22 17:59 Acetaminophen 325 Mg Tab PO Q4H PRN Pain MILD(1-3)/Fever >100.5/RAMIREZ Dextrose 1,000 mls @ 100 mls/hr 05/03/22 09:00 D5w IV DIRECT RENE Morphine Sulfate 2 mg 05/02/22 14:56 Morphine 2 Mg/1 Ml Inj IV Q4H PRN Pain, Moderate (4-6) Ondansetron HCl 4 mg 05/02/22 17:59 Ondansetron 4 Mg/2 Ml Inj IV Q3H PRN Nausea And Vomiting Pantoprazole Sodium 40 mg 05/03/22 10:00 Pantoprazole 40 Mg Inj IV BID RENE Pneumococcal Polyvalent Vaccine 0.5 ml 05/04/22 12:00 Pneumococcal 23 Valent 0.5 Ml Vial IM 05/04/22 12:01 .ONCE ONE Sodium Chloride 10 ml 05/02/22 22:00 05/02/22 23:19 Sodium Chloride 0.9% 10 Ml Flush Syringe IV Not Given BID RENE Sodium Chloride 10 ml 05/02/22 17:59 Sodium Chloride 0.9% 10 Ml Flush Syringe IV PRN PRN LINE FLUSH
[2022-05-03 15:00] LABS: Anisocytosis 1+; Band Neutrophils # (Manual) 0.3 K/mm3; Basophils % (Manual) 0 % (0.0-1.8); Eosinophils % (Manual) 0 % (0.0-4.3); Myelocytes # (Manual) 0.6 K/mm3; Total Cells Counted 100
[2022-05-03 15:01] LABS: Platelet Estimate Consistent w Auto; Toxic Granulation Few; Toxic Vacuolation Few
[2022-05-03 20:23] LABS: Hematocrit 45.6 % (30.3-42.9); Hemoglobin 14.3 gm/dl (10.1-14.3)
[2022-05-04] MEDS: ONDANSETRON 4 MG/2 ML INJ IV PRN ×2 (01:40→21:56)
[2022-05-04] MEDS ORDERED: ALUM-MAG HYDROXIDE-SIMETHICONE 200-200-20MG/5ML ORAL LIQD 30 ML PO ONE (04:15)
[2022-05-04] MEDS ORDERED: traMADol 50 MG TAB PO ONE (04:15)
[2022-05-04 07:31] LABS: Calcium 7.7 mg/dL (8.4-10.2)
[2022-05-04 08:41] LABS: Hematocrit 43.5 % (30.3-42.9); Hemoglobin 13.8 gm/dl (10.1-14.3)
[2022-05-04] MEDS ORDERED: FUROSEMIDE 40 MG TAB PO SCH (10:00)
[2022-05-04] MEDS ORDERED: NON-FORMULARY EACH (Apixaban 5 MG Tablet) PO SCH (10:00)
[2022-05-04] MEDS ORDERED: NON-FORMULARY EACH (Aspirin [Vazalore] 81 MG Capsule) PO SCH (10:00)
--- NOTE | 2022-05-04 10:53 | Gastroenterology Progress Note ---
<YUNIOR GREER - Last Filed: 05/04/22 10:50> Assessment and Plan 1. N/V - appears resolved, s/p EGD yesterday (results below) - continue CLD - continue to monitor H/H and transfuse as needed to maintain >7 - continue PPI IV - okay to resume anticoagulation - h pylori results pending EGD FINDINGS: 1. Normal esophagus exam without any gross abnormalities. 2. Diffuse erosive gastritis in the gastric body and fundus noted friable mucosa. Biopsies not obtained due to recent anticoagulation use. 3. Previously placed PEG tube noted in the gastric body. No surrounding ulceration or erosion noted. 4. Normal duodenal exam. 5. No signs of active bleeding. Subjective Date of service: 05/04/22 Interval history: Pt seen and examined. Sitting comfortably in bed. Denies abd pain, N/V. States she is tolerating water well w/o issues. Objective - Constitutional Vitals: Temp Pulse Resp BP Pulse Ox 97.5 F L 78 18 114/53 96 05/04/22 03:55 05/04/22 03:55 05/04/22 05:03 05/04/22 03:55 05/04/22 03:55 General appearance: no acute distress - Gastrointestinal General gastrointestinal: Present: soft, non-tender, non-distended - Labs CBC & Chem 7: 05/04/22 07:49 05/04/22 06:14 Labs: Laboratory Results - last 24 hr 05/03/22 05/03/22 05/03/22 05:03 07:00 10:00 Hgb 14.6 H Hct 46.4 H Add Manual Diff Complete Total Counted 100 Seg Neuts % (Manual) 85.0 H Band Neutrophils % 3.0 Lymphocytes % (Manual) 4.0 L Reactive Lymphs % (Man) 0 Monocytes % (Manual) 1.0 Eosinophils % (Manual) 0 Basophils % (Manual) 0 Metamyelocytes % 2.0 Myelocytes % 5.0 Promyelocytes % 0 Blast Cells % 0 Nucleated RBC % Not Reportable Seg Neutrophils # Man 9.6 H Band Neutrophils # 0.3 Lymphocytes # (Manual) 0.5 L Abs React Lymphs (Man) 0.0 Monocytes # (Manual) 0.1 Eosinophils # (Manual) 0.0 Basophils # (Manual) 0.0 Metamyelocytes # 0.2 Myelocytes # 0.6 Promyelocytes # 0.0 Blast Cells # 0.0 WBC Morphology Not Reportable Hypersegmented Neuts Not Reportable Hyposegmented Neuts Not Reportable Hypogranular Neuts Not Reportable Smudge Cells Not Reportable Toxic Granulation Few Toxic Vacuolation Few Dohle Bodies Not Reportable Pelger-Huet Anomaly Not Reportable Neela Rods Not Reportable Platelet Estimate Consistent w auto Clumped Platelets Not Reportable Plt Clumps, EDTA Not Reportable Large Platelets Not Reportable Giant Platelets Not Reportable Platelet Satelliting Not Reportable Plt Morphology Comment Not Reportable RBC Morphology Not Reportable Dimorphic RBCs Not Reportable Polychromasia Not Reportable Hypochromasia Not Reportable Poikilocytosis Not Reportable Anisocytosis 1+ Microcytosis Not Reportable Macrocytosis Not Reportable Spherocytes Not Reportable Pappenheimer Bodies Not Reportable Sickle Cells Not Reportable Target Cells Not Reportable Tear Drop Cells Not Reportable Ovalocytes Not Reportable Helmet Cells Not Reportable Malhotra-Hungerford Bodies Not Reportable [place] Rings Not Reportable [place] Cells Not Reportable Bite Cells Not Reportable Crenated Cell Not Reportable Elliptocytes Not Reportable Acanthocytes (Spur) Not Reportable Rouleaux Not Reportable Hemoglobin C Crystals Not Reportable Schistocytes Not Reportable Malaria parasites Not Reportable Nitin Bodies Not Reportable Hem Pathologist Commnt No Sodium Potassium Chloride Carbon Dioxide Anion Gap BUN Creatinine Estimated GFR BUN/Creatinine Ratio Glucose Calcium Nasal Screen MRSA (PCR) Negative 05/03/22 05/04/22 05/04/22 19:30 06:14 07:49 Hgb 14.3 13.8 Hct 45.6 H 43.5 H Add Manual Diff Total Counted Seg Neuts % (Manual) Band Neutrophils % Lymphocytes % (Manual) Reactive Lymphs % (Man) Monocytes % (Manual) Eosinophils % (Manual) Basophils % (Manual) Metamyelocytes % Myelocytes % Promyelocytes % Blast Cells % Nucleated RBC % Seg Neutrophils # Man Band Neutrophils # Lymphocytes # (Manual) Abs React Lymphs (Man) Monocytes # (Manual) Eosinophils # (Manual) Basophils # (Manual) Metamyelocytes # Myelocytes # Promyelocytes # Blast Cells # WBC Morphology Hypersegmented Neuts Hyposegmented Neuts Hypogranular Neuts Smudge Cells Toxic Granulation Toxic Vacuolation Dohle Bodies Pelger-Huet Anomaly Neela Rods Platelet Estimate Clumped Platelets Plt Clumps, EDTA Large Platelets Giant Platelets Platelet Satelliting Plt Morphology Comment RBC Morphology Dimorphic RBCs Polychromasia Hypochromasia Poikilocytosis Anisocytosis Microcytosis Macrocytosis Spherocytes Pappenheimer Bodies Sickle Cells Target Cells Tear Drop Cells Ovalocytes Helmet Cells Malhotra-Hungerford Bodies [place] Rings [place] Cells Bite Cells Crenated Cell Elliptocytes Acanthocytes (Spur) Rouleaux Hemoglobin C Crystals Schistocytes Malaria parasites Nitin Bodies Hem Pathologist Commnt Sodium 136 L D Potassium 3.6 Chloride 100.8 Carbon Dioxide 15 L Anion Gap 24 BUN 75 H Creatinine 1.5 H Estimated GFR 34 BUN/Creatinine Ratio 50 Glucose 132 H Calcium 7.7 L Nasal Screen MRSA (PCR) <MIN,GAYE METZ - Last Filed: 05/04/22 17:30> Assessment and Plan I have personally interviewed/examined the patient on 05/04/22. I performed over 50% of the evaluation/management. I have reviewed the advanced practitioner's evaluation, assessment, and plan, and agree with the assessment and plan. I note the following notes/additions: clinically improving. Tolerating diet. Hemoglobin stable. Continue with PPI. Monitor H&H. Okay to resume anticoagulation. - Patient Problems (1) GI bleed Current Visit: Yes Status: Acute Objective - Constitutional Vitals: Temp Pulse Resp BP Pulse Ox 98.4 F 166 H 20 114/67 97 05/04/22 13:52 05/04/22 13:52 05/04/22 13:52 05/04/22 13:52 05/04/22 13:52 - Labs CBC & Chem 7: 05/04/22 07:49 05/04/22 06:14 Labs: Laboratory Results - last 24 hr 05/03/22 05/04/22 05/04/22 19:30 06:14 07:49 Hgb 14.3 13.8 Hct 45.6 H 43.5 H Sodium 136 L D Potassium 3.6 Chloride 100.8 Carbon Dioxide 15 L Anion Gap 24 BUN 75 H Creatinine 1.5 H Estimated GFR 34 BUN/Creatinine Ratio 50 Glucose 132 H Calcium 7.7 L
[2022-05-04] MEDS ORDERED: PNEUMOCOCCAL 23 Valent 0.5 ML VIAL IM ONE (12:00)
[2022-05-04] MEDS: APIXABAN 5 MG TAB PO SCH ×2 (12:23→21:51)
[2022-05-04] MEDS: ASPIRIN EC 81 MG TAB PO SCH (12:23)
[2022-05-04] MEDS: PANTOPRAZOLE 40 MG TAB PO SCH ×2 (12:24→16:49)
[2022-05-04] MEDS: POLYETHYLENE GLYCOL 3350 17 GM POWDER PO SCH (12:24)
[2022-05-04] MEDS: LACTATED RINGERS 1,000 ML IV SCH (17:10)
[2022-05-05] MEDS: PANTOPRAZOLE 40 MG TAB PO ONE ×2 (01:54→02:05)
[2022-05-05] MEDS ORDERED: PANTOPRAZOLE 40 MG INJ IV ONE (02:08)
[2022-05-05] MEDS: LACTATED RINGERS 1,000 ML IV SCH (05:12)
[2022-05-05 06:13] LABS: Hematocrit 41.8 % (30.3-42.9); Hemoglobin 13.3 gm/dl (10.1-14.3); Mean Corpuscular HGB Conc 32 % (30-34); Mean Corpuscular Volume 95 fl (79-97); Platelet Count 161 K/mm3 (140-440); Red Blood Count 4.39 M/mm3 (3.65-5.03)
[2022-05-05 06:30] LABS: Calcium 7.6 mg/dL (8.4-10.2)
[2022-05-05 07:18] LABS: Band Neutrophils # (Manual) 0.2 K/mm3; Basophils % (Manual) 0 % (0.0-1.8); Eosinophils % (Manual) 0 % (0.0-4.3); Macrocytosis 1+; Platelet Estimate Consistent w Auto; Target Cells Rare; Total Cells Counted 100
[2022-05-05] MEDS ORDERED: POTASSIUM CHLORIDE ER 20 MEQ TAB PO NR (08:00)
[2022-05-05] MEDS: POLYETHYLENE GLYCOL 3350 17 GM POWDER PO SCH (09:52)
[2022-05-05] MEDS: ASPIRIN EC 81 MG TAB PO SCH (09:53)
[2022-05-05] MEDS: APIXABAN 5 MG TAB PO SCH (09:53)
[2022-05-05] MEDS ORDERED: PANTOPRAZOLE 40 MG TAB PO SCH (10:00)
--- NOTE | 2022-05-05 10:48 | Discharge Summary ---
Providers - Providers Date of Admission: 05/02/22 14:56 Date of discharge: 05/05/22 Attending physician: ERIC CROOKS MD 05/02/22 18:15 Consult to Physician [CONS] Routine Comment: Consulting Provider: GAYE CHASE Physician Instructions: Reason For Exam: Upper GI Bleed 05/04/22 09:07 Occupational Therapy Evaluate and Treat [CONS] Routine Comment: Reason For Exam: Debility Physical Therapy For Whirlpool Treatment [CONS] Routine Reason For Exam: Debility 05/04/22 13:58 Occupational Therapy Evaluate and Treat [CONS] Stat Comment: Eval and Treat Reason For Exam: Occupational Therapy 05/04/22 13:59 Physical Therapy Evaluation and Treat [CONS] Stat Comment: Eval and Treat Reason For Exam: Physical Therapy 05/05/22 10:43 Consult to Dietitian/Nutrition [CONS] Routine Reason For Exam: Physician Instructions: Reason for Consult: Write/Manage Tube Feeding Primary care physician: ABRAHAM BROOKS Hospitalization Reason for admission: Upper GI bleed, hematemesis, INES Condition: Fair Pertinent studies: Reviewed. Procedures: Upper endoscopy on 05/03/2022. Hospital course: Patient is a 71-year-old female past medical history of baseline dementia and CAD complicated by recent CABG (February 2022) who presented from her [facility] with complaints of coffee-ground emesis and blood in her stool earlier that morning. Patient also endorsed diffuse abdominal pain. She denied chest pain or shortness of breath. In the ED, the patient was found to be hemodynamically stable and tachycardic at 105. Patient's labs were remarkable for potassium 3.5, bicarbonate 18, WBC 15.3 and, hemoglobin 14.9. Gastroenterology was consulted for further management. Patient was initiated on IV pantoprazole 40 mg twice daily and clear liquids. Patient underwent upper endoscopy (05/03/2022) revealing normal esophagus, diffuse erosive gastritis in the gastric body and fundus with notable friable mucosa (biopsies not obtained due to recent intake regulation use), normal duodenum, no signs of active bleeding. Patient was then back to her diet of tube feeds. Patient is hemodynamically stable with a hemoglobin of 13.3. Patient is medically clear for discharge. Disposition: 01 HOME / SELF CARE / HOMELESS Final Discharge Diagnosis (Prints w/discharge instructions): Upper GI bleed, hematemesis, INES secondary to vasomotor nephropathy, hypokalemia, coronary artery disease status post recent CABG, mild protein caloric malnutrition Time spent for discharge: 45 min Core Measure Documentation - Palliative Care Palliative Care/ Comfort Measures: Not Applicable - Core Measures Any of the following diagnoses?: none Exam - Constitutional Vitals: Temp Pulse Resp BP Pulse Ox 97.5 F L 82 18 127/67 96 05/05/22 04:42 05/05/22 04:42 05/05/22 04:42 05/05/22 04:42 05/05/22 04:42 General appearance: Present: no acute distress, well-nourished - EENT Eyes: Present: PERRL, EOM intact ENT: hearing intact, clear oral mucosa, edentulous - Neck Neck: Present: supple, normal ROM - Respiratory Respiratory effort: normal Respiratory: bilateral: CTA - Cardiovascular Rhythm: regular Heart Sounds: Present: S1 & S2 - Extremities Extremities: no ischemia, pulses intact, pulses symmetrical, No edema, normal temperature, normal color Peripheral Pulses: within normal limits - Abdominal General gastrointestinal: Present: soft, non-tender, non-distended, normal bowel sounds Female genitourinary: Present: deferred - Rectal Rectal Exam: deferred - Integumentary Integumentary: Present: clear, warm, dry - Musculoskeletal Musculoskeletal: generalized weakness - Psychiatric Psychiatric: appropriate mood/affect, cooperative - Neurologic Neurologic: CNII-XII intact, moves all extremities - Allied Health Allied health notes reviewed: nursing Plan Activity: advance as tolerated Diet: low salt Additional Instructions: Patient is a 71-year-old female past medical history of baseline dementia and CAD complicated by recent CABG (February 2022) who presented from her [facility] with complaints of coffee-ground emesis and blood in her stool earlier that morning. Patient also endorsed diffuse abdominal pain. She denied chest pain or shortness of breath. In the ED, the patient was found to be hemodynamically stable and tachycardic at 105. Patient's labs were remarkable for potassium 3.5, bicarbonate 18, WBC 15.3 and, hemoglobin 14.9. Gastroenterology was consulted for further management. Patient was initiated on IV pantoprazole 40 mg twice daily and clear liquids. Patient underwent upper endoscopy (05/03/2022) revealing normal esophagus, diffuse erosive gastritis in the gastric body and fundus with notable friable mucosa (biopsies not obtained due to recent intake regulation use), normal duodenum, no signs of active bleeding. Patient was then back to her diet of tube feeds. Patient is hemodynamically stable with a hemoglobin of 13.3. Patient is medically clear for discharge. Care Plan Goals: Patient is medically cleared for discharge. Assessment: Patient is a 71-year-old female past medical history of baseline dementia and CAD complicated by recent CABG (February 2022) who presented from her [facility] with complaints of coffee-ground emesis and blood in her stool earlier that morning. Patient also endorsed diffuse abdominal pain. She denied chest pain or shortness of breath. In the ED, the patient was found to be hemodynamically stable and tachycardic at 105. Patient's labs were remarkable for potassium 3.5, bicarbonate 18, WBC 15.3 and, hemoglobin 14.9. Gastroenterology was consulted for further management. Patient was initiated on IV pantoprazole 40 mg twice daily and clear liquids. Patient underwent upper endoscopy (05/03/2022) revealing normal esophagus, diffuse erosive gastritis in the gastric body and fundus with notable friable mucosa (biopsies not obtained due to recent intake regulation use), normal duodenum, no signs of active bleeding. Patient was then back to her diet of tube feeds. Patient is hemodynamically stable with a hemoglobin of 13.3. Patient is medically clear for discharge. Follow up with: ABRAHAM BROOKS MD [Primary Care Provider] - 3-5 Days Forms: Accompanied Note
[2022-05-05] MEDS: PANTOPRAZOLE 40 MG TAB PO SCH (15:16)
[2022-05-05 15:45] VITALS: BP 100/60
--- NOTE | 2022-05-05 16:21 | Gastroenterology Progress Note ---
Assessment and Plan # GI bleed # Hematemesis - s/p EGD showing diffuse gastritis, PEG in place - No active bleeding. - h/h stable. - patient still adjusting to PO intake with recent decanulation of trach and has PEG tube for feeding as needed. - planned for discharge back to rehab. - continue with PPI Po bid. - continue with bowel regimen. - discussed with IMS team. - Patient Problems (1) GI bleed Current Visit: Yes Status: Acute Subjective Date of service: 05/05/22 Interval history: Patient reports mild abdominal tenderness. No vomiting episodes but has been having some gagging with p.o. intake. Objective - Constitutional Vitals: Temp Pulse Resp BP Pulse Ox 97.5 F L 78 16 100/60 97 05/05/22 04:42 05/05/22 15:44 05/05/22 15:44 05/05/22 15:44 05/05/22 15:44 General appearance: no acute distress - EENT Eyes: EOM intact ENT: hearing intact - Respiratory Respiratory effort: normal - Cardiovascular Rhythm: regular - Gastrointestinal General gastrointestinal: Present: soft, non-tender, non-distended - Integumentary Integumentary: Present: clear, warm - Neurologic Neurological: alert and oriented x3 - Labs CBC & Chem 7: 05/05/22 05:15 05/05/22 05:15 Labs: Laboratory Results - last 24 hr 05/05/22 05/05/22 05/05/22 05:15 05:15 09:51 WBC 5.9 RBC 4.39 Hgb 13.3 Hct 41.8 MCV 95 MCH 30 MCHC 32 RDW 16.0 H Plt Count 161 Add Manual Diff Complete Total Counted 100 Seg Neuts % (Manual) 74.0 H Band Neutrophils % 3.0 Lymphocytes % (Manual) 6.0 L Reactive Lymphs % (Man) 0 Monocytes % (Manual) 17.0 H Eosinophils % (Manual) 0 Basophils % (Manual) 0 Metamyelocytes % 0 Myelocytes % 0 Promyelocytes % 0 Blast Cells % 0 Nucleated RBC % Not Reportable Seg Neutrophils # Man 4.4 Band Neutrophils # 0.2 Lymphocytes # (Manual) 0.4 L Abs React Lymphs (Man) 0.0 Monocytes # (Manual) 1.0 H Eosinophils # (Manual) 0.0 Basophils # (Manual) 0.0 Metamyelocytes # 0.0 Myelocytes # 0.0 Promyelocytes # 0.0 Blast Cells # 0.0 WBC Morphology Not Reportable Hypersegmented Neuts Not Reportable Hyposegmented Neuts Not Reportable Hypogranular Neuts Not Reportable Smudge Cells Not Reportable Toxic Granulation Not Reportable Toxic Vacuolation Not Reportable Dohle Bodies Not Reportable Pelger-Huet Anomaly Not Reportable Neela Rods Not Reportable Platelet Estimate Consistent w auto Clumped Platelets Not Reportable Plt Clumps, EDTA Not Reportable Large Platelets Not Reportable Giant Platelets Not Reportable Platelet Satelliting Not Reportable Plt Morphology Comment Not Reportable RBC Morphology Not Reportable Dimorphic RBCs Not Reportable Polychromasia Not Reportable Hypochromasia Not Reportable Poikilocytosis Not Reportable Anisocytosis Not Reportable Microcytosis Not Reportable Macrocytosis 1+ Spherocytes Not Reportable Pappenheimer Bodies Not Reportable Sickle Cells Not Reportable Target Cells Rare Tear Drop Cells Not Reportable Ovalocytes Not Reportable Helmet Cells Not Reportable Malhotra-[place] Bodies Not Reportable [place] Rings Not Reportable [place] Cells Not Reportable Bite Cells Not Reportable Crenated Cell Not Reportable Elliptocytes Not Reportable Acanthocytes (Spur) Not Reportable Rouleaux Not Reportable Hemoglobin C Crystals Not Reportable Schistocytes Not Reportable Malaria parasites Not Reportable Nitin Bodies Not Reportable Hem Pathologist Commnt No Sodium 137 Potassium 3.5 L Chloride 102.9 Carbon Dioxide 17 L Anion Gap 21 BUN 79 H Creatinine 1.1 Estimated GFR 49 BUN/Creatinine Ratio 72 Glucose 93 Calcium 7.6 L Coronavirus (PCR) Negative
[2022-05-05] MEDS: ONDANSETRON 4 MG/2 ML INJ IV PRN (16:24)
== END 2022-05-05 18:00 | DRG 377 ==
LOC: ED 09:05 → 3A 14:56
PROVIDERS: ADMIT Internal Medicine; ATTEND Student in an Organized Health Care Education/Training Program
PROC: 0DJ08ZZ Inspection of Upper Intestinal Tract, Via Natural or Artificial Opening Endoscopic (ICD-10-PCS; principal; 2022-05-03)
DX: K29.61 Other gastritis with bleeding (principal); N17.0 Acute kidney failure with tubular necrosis; E44.1 Mild protein-calorie malnutrition; K29.71 Gastritis, unspecified, with bleeding; I25.2 Old myocardial infarction; Z20.822 Contact with and (suspected) exposure to COVID-19; E87.6 Hypokalemia; Z68.25 Body mass index [BMI] 25.0-25.9, adult; I25.10 Atherosclerotic heart disease of native coronary artery without angina pectoris; Z95.1 Presence of aortocoronary bypass graft
CPT/HCPCS: 36415; 74177; 80048; 80053; 82271; 85007; 85014; 85018; 85025; 85610; 85730; 86850; 86900; 86901; 87641; 90732; 93005; 96374; 96375; 99285; G0378; C9113; J0171; J2270; J2370; J2405; J2704; J7030; J7040; J7070; J7120; Q9967; U0003

== ENCOUNTER 2022-05-06 22:06 | Inpatient (IN) | payer MEDICARE ==
[2022-05-06] MEDS ORDERED: SODIUM CHLORIDE 0.9% 1000 ML 1,000 ML IV ONE (22:21)
[2022-05-06] MEDS ORDERED: ONDANSETRON 4 MG/2 ML INJ IV ONE (22:21)
[2022-05-06] MEDS ORDERED: PANTOPRAZOLE 40 MG INJ IV ONE (22:21)
--- NOTE | 2022-05-06 23:06 | XRay Report ---
CHEST 1 VIEW 05/06/2022 10:39 PM INDICATION / CLINICAL INFORMATION: GI Bleed. COMPARISON: None available. FINDINGS: SUPPORT DEVICES: None. HEART / MEDIASTINUM: No significant abnormality. LUNGS / PLEURA: No significant pulmonary or pleural abnormality. No pneumothorax. ADDITIONAL FINDINGS: Median sternotomy wires are present. There is a small hiatal hernia. IMPRESSION: 1. No acute cardiopulmonary abnormality. Signer Name: Demar Rizzo MD Signed: 05/06/2022 11:02 PM Workstation Name: [id number]
[2022-05-06 23:47] LABS: Hematocrit 45.7 % (30.3-42.9); Hemoglobin 14.8 gm/dl (10.1-14.3); Mean Corpuscular HGB Conc 32 % (30-34); Mean Corpuscular Volume 95 fl (79-97); Platelet Count 139 K/mm3 (140-440); Red Blood Count 4.81 M/mm3 (3.65-5.03); Red Cell Distribution Width 16.6 % (13.2-15.2)
[2022-05-07] LABS: INR 1.98 (0.87-1.13)
[2022-05-07 00:07] LABS: Albumin 2.7 g/dL (3.9-5); Calcium 7.7 mg/dL (8.4-10.2)
[2022-05-07] MEDS: dilTIAZem/NaCl 125 MG/125 ML BAG IV SCH ×3 (04:44→05:23)
--- NOTE | 2022-05-07 05:20 | Emergency Department Report ---
ED Palpitations HPI - General Chief Complaint: Arrhythmia/Palpitations Stated Complaint: RAPID HEARTBEAT Time Seen by Provider: 05/06/22 22:22 Source: patient, EMS Mode of arrival: Stretcher Limitations: Physical Limitation - History of Present Illness Initial Comments: pt coming from care home, initial call was for N/V, pt had HR 180 on arrival, pt is a/o x4, pt seen in ED yesterday Complaint: rapid heart beat, "heart racing" -: days(s) Context: occured during rest Associated Symptoms: denies: denies other symptoms, chest pain, shortness of b reath - Related Data Home Medications Medication Instructions Recorded Confirmed Last Taken Acetaminophen [Tylenol Extra 1,000 mg PO TID 05/03/22 05/03/22 Unknown Strength] Acetaminophen [Tylenol] 1,000 mg PO Q8HR 05/03/22 05/03/22 Unknown Apixaban [Eliquis] 5 mg PO BID 05/03/22 05/03/22 Unknown Aspirin [Vazalore] 81 mg PO DAILY 05/03/22 05/03/22 Unknown AtorvaSTATin [Lipitor] 40 mg PO QHS 05/03/22 05/03/22 Unknown Calcium Carbonate/Vitamin D3 1 tab PO QID 05/03/22 05/03/22 Unknown [Calcium 500 mg Chewable Tablet] Diclofenac 1% [Diclofenac 1% 100 gm TP BID 05/03/22 05/03/22 Unknown topical gel] Furosemide [Lasix] 40 mg PO Q48HR 05/03/22 05/03/22 Unknown Lidocaine [Lidocaine Cream] 5 gm TP DAILY 05/03/22 05/03/22 Unknown Metoclopramide HCl [Reglan TAB] 5 mg PO BID 05/03/22 05/03/22 Unknown Multivit-Min/Iron Fum/Folic AC 1 each PO DAILY 05/03/22 05/04/22 Unknown [Xflem-Rhmevui-Ediklamq Tablet] Nitro-Bid 0.5 inch .ROUTE 6XD 05/03/22 05/03/22 Unknown Pantoprazole [Protonix TAB] 40 mg PO DAILY 05/03/22 05/03/22 Unknown guaiFENesin ER [Mucinex ER] 1,200 mg PO BID 05/03/22 05/03/22 Unknown Allergies Allergy/AdvReac Type Severity Reaction Status Date / Time No Known Allergies Allergy Unverified 05/02/22 10:27 ED Review of Systems ROS: Stated complaint: RAPID HEARTBEAT Other details as noted in HPI Constitutional: denies: chills, fever Eyes: denies: eye pain, eye discharge, vision change ENT: denies: ear pain, throat pain Respiratory: denies: cough, shortness of breath, wheezing Cardiovascular: denies: chest pain, palpitations Endocrine: no symptoms reported Gastrointestinal: denies: abdominal pain, nausea, diarrhea Genitourinary: denies: urgency, dysuria, discharge Musculoskeletal: denies: back pain, joint swelling, arthralgia Skin: denies: rash, lesions Neurological: denies: headache, weakness, paresthesias Psychiatric: denies: anxiety, depression Hematological/Lymphatic: denies: easy bleeding, easy bruising ED Past Medical Hx - Past Medical History 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, s/p CABG) Hx Diabetes: No Hx Pulmonary Embolism: No Hx Sickle Cell Disease: No Hx Arthritis: Yes Hx Asthma: No Hx COPD: No Hx Tuberculosis: No Hx HIV: No - Surgical History Hx Open Heart Surgery: Yes (CABG) Additional Surgical History: Feeding tube, knee surgery - Social History Smoking Status: Unknown if ever smoked - Medications Home Medications: Home Medications Medication Instructions Recorded Confirmed Last Taken Type Acetaminophen [Tylenol Extra 1,000 mg PO TID 05/03/22 05/03/22 Unknown History Strength] Acetaminophen [Tylenol] 1,000 mg PO Q8HR 05/03/22 05/03/22 Unknown History Apixaban [Eliquis] 5 mg PO BID 05/03/22 05/03/22 Unknown History Aspirin [Vazalore] 81 mg PO DAILY 05/03/22 05/03/22 Unknown History AtorvaSTATin [Lipitor] 40 mg PO QHS 05/03/22 05/03/22 Unknown History Calcium Carbonate/Vitamin D3 1 tab PO QID 05/03/22 05/03/22 Unknown History [Calcium 500 mg Chewable Tablet] Diclofenac 1% [Diclofenac 1% 100 gm TP BID 05/03/22 05/03/22 Unknown History topical gel] Furosemide [Lasix] 40 mg PO Q48HR 05/03/22 05/03/22 Unknown History Lidocaine [Lidocaine Cream] 5 gm TP DAILY 05/03/22 05/03/22 Unknown History Metoclopramide HCl [Reglan TAB] 5 mg PO BID 05/03/22 05/03/22 Unknown History Multivit-Min/Iron Fum/Folic AC 1 each PO DAILY 05/03/22 05/04/22 Unknown History [Vzmee-Jmwvyoa-Pvcqvdmd Tablet] Nitro-Bid 0.5 inch .ROUTE 6XD 05/03/22 05/03/22 Unknown History Pantoprazole [Protonix TAB] 40 mg PO DAILY 05/03/22 05/03/22 Unknown History guaiFENesin ER [Mucinex ER] 1,200 mg PO BID 05/03/22 05/03/22 Unknown History ED Physical Exam - General Limitations: Physical Limitation General appearance: alert, cachectic - Head Head exam: Present: atraumatic, normocephalic - Eye Eye exam: Present: normal appearance - ENT ENT exam: Present: mucous membranes moist - Neck Neck exam: Present: normal inspection - Respiratory Respiratory exam: Present: normal lung sounds bilaterally. Absent: respiratory distress - Cardiovascular Cardiovascular Exam: Present: tachycardia, irregular rhythm. Absent: systolic murmur, diastolic murmur, rubs, gallop - GI/Abdominal GI/Abdominal exam: Present: soft, normal bowel sounds - Extremities Exam Extremities exam: Present: normal inspection - Back Exam Back exam: Present: normal inspection - Neurological Exam Neurological exam: Present: alert, oriented X3 - Psychiatric Psychiatric exam: Present: normal affect, normal mood - Skin Skin exam: Present: warm, dry, intact, normal color. Absent: rash ED Course Vital Signs 05/06/22 05/06/22 05/06/22 22:13 22:15 22:30 Temperature 96.2 F L Pulse Rate 127 H 124 H 158 H Respiratory 21 22 22 Rate Blood Pressure 155/102 O2 Sat by Pulse 98 96 95 Oximetry 05/06/22 05/06/22 05/06/22 22:31 22:32 22:45 Temperature Pulse Rate 145 H 148 H 151 H Respiratory 28 H 26 H Rate Blood Pressure 151/76 137/93 O2 Sat by Pulse 96 97 Oximetry 05/06/22 05/06/22 05/06/22 23:01 23:15 23:31 Temperature Pulse Rate 143 H 156 H 156 H Respiratory 17 23 22 Rate Blood Pressure 138/84 150/63 136/85 O2 Sat by Pulse 97 97 Oximetry 05/06/22 05/06/22 05/07/22 23:35 23:45 00:01 Temperature Pulse Rate 166 H 162 H 150 H Respiratory 22 22 25 H Rate Blood Pressure 152/86 146/100 149/98 O2 Sat by Pulse 97 97 98 Oximetry 05/07/22 05/07/22 05/07/22 00:15 00:31 00:45 Temperature Pulse Rate 156 H 159 H 169 H Respiratory 31 H 29 H 27 H Rate Blood Pressure 140/90 141/90 106/76 O2 Sat by Pulse 97 98 Oximetry 05/07/22 05/07/22 05/07/22 01:01 01:15 01:31 Temperature Pulse Rate 167 H Respiratory 25 H 27 H 22 Rate Blood Pressure 125/90 137/87 127/103 O2 Sat by Pulse 100 96 96 Oximetry 05/07/22 05/07/22 05/07/22 01:45 02:01 02:15 Temperature Pulse Rate Respiratory 27 H 24 30 H Rate Blood Pressure 128/81 138/90 131/86 O2 Sat by Pulse 98 95 97 Oximetry 05/07/22 05/07/22 05/07/22 02:31 02:45 03:01 Temperature Pulse Rate Respiratory 33 H 31 H 29 H Rate Blood Pressure 142/91 135/83 134/98 O2 Sat by Pulse 94 96 96 Oximetry 05/07/22 05/07/22 05/07/22 03:15 03:31 03:45 Temperature Pulse Rate Respiratory 32 H 32 H 28 H Rate Blood Pressure 130/103 145/106 137/84 O2 Sat by Pulse 96 95 96 Oximetry 05/07/22 05/07/22 05/07/22 04:01 04:15 04:31 Temperature Pulse Rate 172 H 173 H Respiratory 26 H 28 H 28 H Rate Blood Pressure 142/94 139/83 147/108 O2 Sat by Pulse 96 97 98 Oximetry 05/07/22 05/07/22 04:45 05:01 Temperature Pulse Rate 162 H 165 H Respiratory 43 H 44 H Rate Blood Pressure 140/89 135/83 O2 Sat by Pulse 97 97 Oximetry ED Medical Decision Making - Lab Data Result diagrams: 05/06/22 23:14 05/06/22 23:14 - EKG Data -: EKG Interpreted by Me - EKG Data Interpretation: other (afib rvr) - Radiology Data Radiology results: report reviewed, image reviewed - Medical Decision Making pt was given amio and adenosine by EMS here was found to be on afib rvr cardiaezm started for GI bleed, vss , no active bleeding , h.h stabe started pn ppi Critical care attestation.: If time is entered above; I have spent that time in minutes in the direct care of this critically ill patient, excluding procedure time. ED Disposition Clinical Impression: GI bleed, Atrial fibrillation Disposition: ADMITTED INPATIENT Is pt being admited?: Yes Does the pt Need Aspirin: No Condition: Stable Referrals: PRIMARY CARE, [Primary Care Provider] - 3-5 Days
[2022-05-07] MEDS ORDERED: MORPHINE 4 MG/1 ML INJ IV PRN (05:45)
[2022-05-07] MEDS ORDERED: MAGNESIUM HYDROXIDE (MOM) ORAL LIQD UDC PO PRN (05:45)
[2022-05-07] MEDS ORDERED: ACETAMINOPHEN 325 MG TAB PO PRN (05:45)
[2022-05-07] MEDS ORDERED: MORPHINE 2 MG/1 ML INJ IV PRN (05:45)
--- NOTE | 2022-05-07 06:08 | History and Physical Report ---
History of Present Illness Date of examination: 05/07/22 Date of admission: 05/07/2022 Chief complaint: Hematemesis History of present illness: 71-year-old female resident of shelter with known history of coronary artery disease with AK in the past presents to the emergency room today for evaluation of nausea, vomiting and palpitations. Patient was just recently discharged from this hospital during which she had a GI bleed and had EGD which revealed diffuse gastritis. Patient states she has just been vomiting blood blood earlier today and has been having palpitations. She denies any chest pain. Upon arrival in the emergency room patient was in A. fib with RVR. She was subsequently started on a Cardizem drip. Work-up in the emergency room today, lab is significant for hemoglobin of 14.8 and hematocrit of 45.7, lactic acid of 2.3, BUN of 74 and creatinine was 1.2. Patient has been started on Protonix drip and Cardizem drip. Past History Past Medical History: acute AK, arthritis Past Surgical History: CABG, Other (PEG tube placement) Social history: no significant social history Family history: no significant family history Medications and Allergies Allergies Allergy/AdvReac Type Severity Reaction Status Date / Time No Known Allergies Allergy Unverified 05/02/22 10:27 Home Medications Medication Instructions Recorded Confirmed Last Taken Type Acetaminophen [Tylenol Extra 1,000 mg PO TID 05/03/22 05/03/22 Unknown History Strength] Acetaminophen [Tylenol] 1,000 mg PO Q8HR 05/03/22 05/03/22 Unknown History Apixaban [Eliquis] 5 mg PO BID 05/03/22 05/03/22 Unknown History Aspirin [Vazalore] 81 mg PO DAILY 05/03/22 05/03/22 Unknown History AtorvaSTATin [Lipitor] 40 mg PO QHS 05/03/22 05/03/22 Unknown History Calcium Carbonate/Vitamin D3 1 tab PO QID 05/03/22 05/03/22 Unknown History [Calcium 500 mg Chewable Tablet] Diclofenac 1% [Diclofenac 1% 100 gm TP BID 05/03/22 05/03/22 Unknown History topical gel] Furosemide [Lasix] 40 mg PO Q48HR 05/03/22 05/03/22 Unknown History Lidocaine [Lidocaine Cream] 5 gm TP DAILY 05/03/22 05/03/22 Unknown History Metoclopramide HCl [Reglan TAB] 5 mg PO BID 05/03/22 05/03/22 Unknown History Multivit-Min/Iron Fum/Folic AC 1 each PO DAILY 05/03/22 05/04/22 Unknown History [Snjsk-Ydxphpz-Sangaceg Tablet] Nitro-Bid 0.5 inch .ROUTE 6XD 05/03/22 05/03/22 Unknown History Pantoprazole [Protonix TAB] 40 mg PO DAILY 05/03/22 05/03/22 Unknown History guaiFENesin ER [Mucinex ER] 1,200 mg PO BID 05/03/22 05/03/22 Unknown History Active Meds: Active Medications Acetaminophen (Acetaminophen 325 Mg Tab) 650 mg PO Q6H PRN PRN Reason: Pain MILD(1-3)/Fever >100.5/RAMIREZ dilTIAZem/NaCl (Diltiazem/Nacl 125mg/125ml) 125 mg in 125 mls @ 5 mls/hr IV TITRATE RENE; Protocol Last Admin: 05/07/22 05:23 Dose: 15 mg/hr, 15 mls/hr Magnesium Hydroxide (Magnesium Hydroxide (Mom) Oral Liqd Udc) 30 ml PO Q4H PRN PRN Reason: Constipation Morphine Sulfate (Morphine 2 Mg/1 Ml Inj) 2 mg IV Q4H PRN PRN Reason: Pain, Moderate (4-6) Morphine Sulfate (Morphine 4 Mg/1 Ml Inj) 4 mg IV Q4H PRN PRN Reason: Pain , Severe (7-10) Sodium Chloride (Sodium Chloride 0.9% 10 Ml Flush Syringe) 10 ml IV BID RENE Sodium Chloride (Sodium Chloride 0.9% 10 Ml Flush Syringe) 10 ml IV PRN PRN PRN Reason: LINE FLUSH Review of Systems Constitutional: no fever, no chills Ears, nose, mouth and throat: no nasal congestion, no sore throat Cardiovascular: no chest pain, no palpitations Respiratory: no cough, no shortness of breath Gastrointestinal: nausea, vomiting, hematemesis, no abdominal pain, no diarrhea, no melena, no hematochezia Genitourinary Female: no pelvic pain, no flank pain Musculoskeletal: no neck pain, no low back pain Integumentary: no rash, no pruritis Neurological: no headaches, no confusion Psychiatric: no anxiety, no depression Endocrine: no polyphagia, no polydipsia, no polyuria, no nocturia Exam - Constitutional Vitals: Temp Pulse Resp BP Pulse Ox 96.2 F L 155 H 41 H 105/53 98 05/06/22 22:30 05/07/22 05:31 05/07/22 05:31 05/07/22 05:31 05/07/22 05:31 General appearance: Present: no acute distress, well-nourished - EENT Eyes: Present: PERRL, EOM intact. Absent: scleral icterus ENT: hearing intact, clear oral mucosa, dentition normal - Neck Neck: Present: supple, normal ROM - Respiratory Respiratory effort: normal Respiratory: bilateral: CTA - Cardiovascular Rhythm: irregularly irregular Heart Sounds: Present: S1 & S2. Absent: gallop, systolic murmur, diastolic murm ur, rub, click - Extremities Extremities: no ischemia, pulses intact, pulses symmetrical, No edema, normal temperature, normal color, Full ROM Peripheral Pulses: within normal limits - Abdominal General gastrointestinal: Present: soft, non-tender, non-distended, normal bowel sounds, other (PEG tube in place). Absent: mass - Integumentary Integumentary: Present: clear, warm, dry, normal turgor. Absent: rash - Musculoskeletal Musculoskeletal: strength equal bilaterally - Psychiatric Psychiatric: appropriate mood/affect, intact judgment & insight, cooperative - Neurologic Neurologic: CNII-XII intact, no focal deficits, moves all extremities Results - Labs CBC & Chem 7: 05/06/22 23:14 05/06/22 23:14 Labs: Abnormal lab results 05/06/22 05/06/22 05/06/22 Range/Units 23:14 23:14 23:14 Hgb 14.8 H (10.1-14.3) gm/dl Hct 45.7 H (30.3-42.9) % RDW 16.6 H (13.2-15.2) % Plt Count 139 L (140-440) K/mm3 PT 25.6 H (12.2-14.9) Sec. INR 1.98 H (0.87-1.13) Sodium 135 L (137-145) mmol/L Carbon Dioxide 15 L (22-30) mmol/L BUN 74 H (7-17) mg/dL Glucose 115 H (65-100) mg/dL Lactic Acid (0.7-2.0) mmol/L Calcium 7.7 L (8.4-10.2) mg/dL Magnesium 2.40 H (1.7-2.3) mg/dL Alkaline Phosphatase 164 H (35-129) units/L Total Protein 5.1 L (6.3-8.2) g/dL Albumin 2.7 L (3.9-5) g/dL 05/06/22 Range/Units 23:14 Hgb (10.1-14.3) gm/dl Hct (30.3-42.9) % RDW (13.2-15.2) % Plt Count (140-440) K/mm3 PT (12.2-14.9) Sec. INR (0.87-1.13) Sodium (137-145) mmol/L Carbon Dioxide (22-30) mmol/L BUN (7-17) mg/dL Glucose (65-100) mg/dL Lactic Acid 2.30 H* (0.7-2.0) mmol/L Calcium (8.4-10.2) mg/dL Magnesium (1.7-2.3) mg/dL Alkaline Phosphatase (35-129) units/L Total Protein (6.3-8.2) g/dL Albumin (3.9-5) g/dL Assessment and Plan Assessment: 1. Upper GI bleed 3. A. fib with RVR 3. History of coronary artery disease Plan: 1. Patient admitted and placed on Cardizem drip. 2. We will place consult to cardiology for evaluation and recommendations. 3. We will also request GI evaluation and recommendations. 4. Patient placed on Protonix drip. DVT prophylaxis: Sequential compression device. CODE STATUS: Full code
[2022-05-07] MEDS ORDERED: PANTOPRAZOLE 40 MG INJ IV SCH (10:00)
--- NOTE | 2022-05-07 10:06 | XRay Report ---
ABDOMEN 1 VIEW INDICATION / CLINICAL INFORMATION: Abdominal Distention. COMPARISON: CT abdomen and pelvis with contrast from 05/02/2022. FINDINGS: TUBES / LINES: A PEG tube is unchanged in position. There is moderate gaseous distention of the stoma ch with multiple moderately dilated small bowel loops. There is mild colonic dilatation. The colon co ntains a large amount of stool. BOWEL GAS PATTERN: No significant abnormality. FREE AIR / EXTRALUMINAL GAS: None seen. ADDITIONAL FINDINGS: No significant additional findings. IMPRESSION: Similar findings suggestive of constipation with increased small bowel dilatation, favored to represe nt an evolving ileus. Signer Name: Brien Burch MD Signed: 05/07/2022 10:02 AM Workstation Name: [id number]
[2022-05-07] MEDS ORDERED: SODIUM CHLORIDE 0.9% 1000 ML 1,000 ML IV ONE ×2 (11:00→12:00)
[2022-05-07] MEDS ORDERED: ONDANSETRON 4 MG/2 ML INJ IV PRN (11:00)
--- NOTE | 2022-05-07 11:31 | Progress Note ---
<MALU CANAS - Last Filed: 05/07/22 18:12> Assessment and Plan Assessment and plan: This is a 71-year old female who was recently discharge on 05/05 after being treated for GIB. Patient has a known past medical history of NM, CAD s/p CABG x2 on 03/01/2022, tobacco abuse, and dysphagia s/p PEG-tube placement readmitted for GI bleed and new onset atrial fibrillation with rapid ventricular response Hospital Course to Date: 05/07: Patient appears in distress this morning. With increase WOB and tachypnea requiring NRB. Drowsy but arousable, following simple commands, ABG pending. Still vomiting dark blood with abdominal distention, PEG-tube placed on LIS over 1L of dark maroon output. KUB revealed constipation and possible evolving ileus. Protonix and Octreotide gtts ordered. Keep patient NPO, placed NGT to LIS for decompression, & X1 suppository. GI consult pending. Continue to trend H&H and transfuse for hgb less than 7. Patient remains in Afib but control rate on the monitor, cardizem gtt held due to hypotension s/p 2L NS bolus and now on Levophed gtt. 2D echo pending and cardiology consulted. [facility] is also following. Assessment and Plan #Upper GI bleed #Hematemesis #Abdominal Distention #Recent admit for GIB s/p EGD - Recent admit from 05/02 reviewed, EGD revealed diffuse gastritis and discharged - Still with hematemesis, Over 1L of dark hugo output form PEG-tube - KUB revealed constipation and possible evolving ileus - Protonix and Octreotide gtts ordered - Keep patient NPO, placed NGT to LIS for decompression, & X1 suppository. - GI consult pending - Continue to trend H&H and transfuse for hgb less than 7 - [facility] is also following #New Onset Atrial Fibrillation with RVR #H/o NM & CAD s/p CABG x2 on 03/01/2022 - Probably 2/2 to above presented - remains in Afib but control rate on the monitor - S/p cardizem gtt, held due to hypotension. S/p 2L NS bolus and now on Levophed gtt - 2D echo pending - Cardiology consulted - Continue blood pressure monitor per protocol - Titrate pressor to maintain MAP above 65 - Patient not candidte for AC at this time due to GIB - Hold all antihypertensive meds for now #Acute Hypoxic Respiratory Failure - With increase WOB and tachypnea now on NRB, probably 2/2 to above - Recent CXR with no significant abnormality - ABG pending - Continue O2 supplementation and wean as tolerated - Continue SPO2 monitoring for SPO2 goal above 92% #Dysphasia s/p PEG-Tube placement - Keep NPO due to GIB bleed - Resume TF once GIB resolved and okayed by GI #GI/DVT Prophylaxis - PPI- Protonix gtt - SCDs to bilateral lower extremities while in bed #Advance Care Planning - Disease education data, care plan, diagnoses, and prognosis were thoroughly discussed with patient's daughter-Hawa Larkin and granddaughter-Christi Larkin via phone at . They acknowledged understanding and agreed with current care plan. Patient is a FULL CODE status. The high probability of a clinically significant, sudden or life threatening deterioration of the [multiple] system(s) required my full and direct attention, intervention and personal management. The aggregate critical care time was [60] minutes. This time is in addition to time spent performing reported procedures but includes the following: [x] Data Review and interpretation [x] Patient assessment and monitoring of vital signs [x] Documentation [x] Medication orders and management Disposition Plan: ICU Total Time Spent with Patient (Minutes): 60 History Interval history: Patient seen and examined at the bedside. Drowsy but easily arousable, following simple commands. Patient appears pale and in distress this am, with increase WOB and tachypnea requiring NRB. With persistent Hematemesis and abdominal distention this am, PEG-tube to LIS, over 1L of dark maroon output drained. Afib control noted on the monitor, cardizem gtt held due to hypotension s/p 2L NS bolus and now on Levophed gtt. Hospitalist Physical - Constitutional Vitals: Temp Pulse Resp BP Pulse Ox 95.8 F L 78 32 H 115/67 98 05/07/22 08:39 05/07/22 11:01 05/07/22 11:01 05/07/22 11:01 05/07/22 11:01 General appearance: Present: mild distress, well-nourished, other ([place]) - EENT Eyes: Present: PERRL ENT: hearing intact - Neck Neck: Present: normal ROM - Respiratory Respiratory effort: labored, accessory muscle use, other (tachypnea) Respiratory: bilateral: diminished - Cardiovascular Rhythm: irregularly irregular Heart Sounds: Present: S1 & S2 - Extremities Extremities: no ischemia, pulses intact, pulses symmetrical Extremity abnormal: edema - Peripheral Assessment Generalized Edema Type: Non-pitting Edema Degree: 2+ Capillary Refill: < 3 seconds Skin Temperature: Warm Peripheral Pulses: within normal limits - Abdominal General gastrointestinal: soft, non-tender, distended, other (Hematemesis) - Integumentary Integumentary: Present: warm, dry - Psychiatric Psychiatric: cooperative, other (Drowsy, easily arousable, following simple commands) - Neurologic Neurologic: moves all extremities, other (Drowsy, easily arousable, following simple commands) - Allied Health Allied health notes reviewed: nursing, case management Results - Labs CBC & Chem 7: 05/07/22 11:53 05/06/22 23:14 Labs: Laboratory Last Values WBC 10.3 K/mm3 (4.5-11.0) 05/06/22 23:14 RBC 4.81 M/mm3 (3.65-5.03) 05/06/22 23:14 Hgb 14.8 gm/dl (10.1-14.3) H 05/06/22 23:14 Hct 45.7 % (30.3-42.9) H 05/06/22 23:14 MCV 95 fl (79-97) 05/06/22 23:14 MCH 31 pg (28-32) 05/06/22 23:14 MCHC 32 % (30-34) 05/06/22 23:14 RDW 16.6 % (13.2-15.2) H 05/06/22 23:14 Plt Count 139 K/mm3 (140-440) L 05/06/22 23:14 Lymph % (Auto) Not Reportable 05/06/22 23:14 [place] % (Auto) Not Reportable 05/06/22 23:14 Eos % (Auto) Not Reportable 05/06/22 23:14 Baso % (Auto) Not Reportable 05/06/22 23:14 Lymph # (Auto) Not Reportable 05/06/22 23:14 [place] # (Auto) Not Reportable 05/06/22 23:14 Eos # (Auto) Not Reportable 05/06/22 23:14 Baso # (Auto) Not Reportable 05/06/22 23:14 Seg Neutrophils # Not Reportable 05/06/22 23:14 PT 25.6 Sec. (12.2-14.9) H 05/06/22 23:14 INR 1.98 (0.87-1.13) H 05/06/22 23:14 Sodium 135 mmol/L (137-145) L 05/06/22 23:14 Potassium 3.9 mmol/L (3.6-5.0) 05/06/22 23:14 Chloride 101.3 mmol/L (98-107) 05/06/22 23:14 Carbon Dioxide 15 mmol/L (22-30) L 05/06/22 23:14 Anion Gap 23 mmol/L 05/06/22 23:14 BUN 74 mg/dL (7-17) H 05/06/22 23:14 Creatinine 1.2 mg/dL (0.6-1.2) 05/06/22 23:14 Estimated GFR 44 ml/min 05/06/22 23:14 BUN/Creatinine Ratio 62 % 05/06/22 23:14 Glucose 115 mg/dL (65-100) H 05/06/22 23:14 Lactic Acid 1.70 mmol/L (0.7-2.0) 05/07/22 00:25 Calcium 7.7 mg/dL (8.4-10.2) L 05/06/22 23:14 Magnesium 2.40 mg/dL (1.7-2.3) H 05/06/22 23:14 Total Bilirubin 0.70 mg/dL (0.1-1.2) 05/06/22 23:14 AST 32 units/L (5-40) 05/06/22 23:14 ALT 8 units/L (7-56) 05/06/22 23:14 Alkaline Phosphatase 164 units/L (35-129) H 05/06/22 23:14 Total Protein 5.1 g/dL (6.3-8.2) L 05/06/22 23:14 Albumin 2.7 g/dL (3.9-5) L 05/06/22 23:14 Albumin/Globulin Ratio 1.1 % 05/06/22 23:14 Lipase 19 units/L (13-60) 05/06/22 23:14 Blood Type O NEGATIVE 05/06/22 23:14 Antibody Screen Negative 05/06/22 23:14 Active Medications - Current Medications Current Medications: Generic Name Dose Route Start Last Admin Trade Name Freq PRN Reason Stop Dose Admin Acetaminophen 650 mg 05/07/22 05:45 Acetaminophen 325 Mg Tab PO Q6H PRN Pain MILD(1-3)/Fever >100.5/RAMIREZ dilTIAZem/NaCl 125 mg in 125 mls @ 5 mls/hr 05/07/22 05:00 05/07/22 10:08 Diltiazem/Nacl 125mg/125ml IV Infused TITRATE RENE Titration Protocol 5 MG/HR Sodium Chloride 1,000 mls @ 999 mls/hr 05/07/22 11:00 05/07/22 10:19 Nacl 0.9% 1000 Ml IV 05/07/22 12:00 999 mls/hr BOLUS ONE Administration Sodium Chloride 1,000 mls @ 999 mls/hr 05/07/22 11:27 Nacl 0.9% 1000 Ml IV 05/07/22 12:27 BOLUS ONE NORepinephrine/NS 8 MG-250 ML 8 mg in 250 mls @ 15.188 mls/hr 05/07/22 12:00 Norepinephrine/Ns 8 Mg-250 Ml (Double Conc) IV TITRATE RENE Protocol 0.1 MCG/KG/MIN Octreotide Acetate 500 mcg/ 101 mls @ 5.05 mls/hr 05/07/22 12:00 Sodium Chloride IV TITR RENE Protocol 25 MCG/HR Pantoprazole Sodium 80 mg/ 100 mls @ 10 mls/hr 05/07/22 12:00 Sodium Chloride IV DIRECT RENE 8 MG/HR Magnesium Hydroxide 30 ml 05/07/22 05:45 Magnesium Hydroxide (Mom) Oral Liqd Udc PO Q4H PRN Constipation Morphine Sulfate 2 mg 05/07/22 05:45 Morphine 2 Mg/1 Ml Inj IV Q4H PRN Pain, Moderate (4-6) Ondansetron HCl 4 mg 05/07/22 11:00 05/07/22 10:11 Ondansetron 4 Mg/2 Ml Inj IV 4 mg Q8H PRN Administration Nausea And Vomiting Sodium Chloride 10 ml 05/07/22 10:00 05/07/22 09:40 Sodium Chloride 0.9% 10 Ml Flush Syringe IV 10 ml BID RENE Administration Sodium Chloride 10 ml 05/07/22 05:45 Sodium Chloride 0.9% 10 Ml Flush Syringe IV PRN PRN LINE FLUSH <DEANDRATIEN - Last Filed: 05/08/22 07:21> Assessment and Plan Assessment and plan: I saw and evaluated the patient. I agree with the findings and the plan of care as documented in the Nurse Practitioner's~note, with the following corrections and additions. Hospitalist Physical - Constitutional Vitals: Temp Pulse Resp BP Pulse Ox 96.4 F L 53 L 30 H 123/16 0 L 05/07/22 20:00 05/08/22 03:01 05/08/22 03:01 05/08/22 03:01 05/08/22 03:12 HEART Score - HEART Score Troponin: Troponin T 0.064 ng/mL (0.00-0.029) H 05/07/22 11:53 Results - Labs CBC & Chem 7: 05/07/22 17:33 05/06/22 23:14 Labs: Laboratory Last Values WBC 10.3 K/mm3 (4.5-11.0) 05/06/22 23:14 RBC 4.81 M/mm3 (3.65-5.03) 05/06/22 23:14 Hgb 13.3 gm/dl (10.1-14.3) 05/07/22 17:33 Hct 42.7 % (30.3-42.9) 05/07/22 17:33 MCV 95 fl (79-97) 05/06/22 23:14 MCH 31 pg (28-32) 05/06/22 23:14 MCHC 32 % (30-34) 05/06/22 23:14 RDW 16.6 % (13.2-15.2) H 05/06/22 23:14 Plt Count 122 K/mm3 (140-440) L 05/07/22 17:33 Lymph % (Auto) Not Reportable 05/06/22 23:14 [place] % (Auto) Not Reportable 05/06/22 23:14 Eos % (Auto) Not Reportable 05/06/22 23:14 Baso % (Auto) Not Reportable 05/06/22 23:14 Lymph # (Auto) Not Reportable 05/06/22 23:14 [place] # (Auto) Not Reportable 05/06/22 23:14 Eos # (Auto) Not Reportable 05/06/22 23:14 Baso # (Auto) Not Reportable 05/06/22 23:14 Seg Neutrophils # Not Reportable 05/06/22 23:14 PT 25.6 Sec. (12.2-14.9) H 05/06/22 23:14 INR 1.98 (0.87-1.13) H 05/06/22 23:14 ABG pH 7.075 pH Units (7.350-7.450) L* 05/08/22 00:16 ABG pCO2 28.3 mm Hg 05/08/22 00:16 ABG pO2 141.4 mm Hg (80.0-90.0) H 05/08/22 00:16 ABG HCO3 8.1 mmol/L (20.0-26.0) L 05/08/22 00:16 ABG O2 Saturation 98.1 % (95.0-99.0) 05/08/22 00:16 ABG O2 Content 16.9 (0.0-44) 05/08/22 00:16 ABG Base Excess -20.6 mmol/L (-2.0-3.0) L 05/08/22 00:16 ABG Hemoglobin 12.2 gm/dl (12.0-16.0) 05/08/22 00:16 ABG Carboxyhemoglobin 1.2 % (0.0-5.0) 05/08/22 00:16 ABG Methemoglobin Not Reportable 05/08/22 00:16 Oxyhemoglobin 97.0 % (95.0-99.0) 05/08/22 00:16 FiO2 50 % 05/08/22 00:16 Sodium 135 mmol/L (137-145) L 05/06/22 23:14 Potassium 3.9 mmol/L (3.6-5.0) 05/06/22 23:14 Chloride 101.3 mmol/L (98-107) 05/06/22 23:14 Carbon Dioxide 15 mmol/L (22-30) L 05/06/22 23:14 Anion Gap 23 mmol/L 05/06/22 23:14 BUN 74 mg/dL (7-17) H 05/06/22 23:14 Creatinine 1.2 mg/dL (0.6-1.2) 05/06/22 23:14 Estimated GFR 44 ml/min 05/06/22 23:14 BUN/Creatinine Ratio 62 % 05/06/22 23:14 Glucose 115 mg/dL (65-100) H 05/06/22 23:14 POC Glucose 566 mg/dL (70-105) H 05/08/22 03:00 Lactic Acid 1.70 mmol/L (0.7-2.0) 05/07/22 00:25 Calcium 7.7 mg/dL (8.4-10.2) L 05/06/22 23:14 Magnesium 2.40 mg/dL (1.7-2.3) H 05/06/22 23:14 Total Bilirubin 0.70 mg/dL (0.1-1.2) 05/06/22 23:14 AST 32 units/L (5-40) 05/06/22 23:14 ALT 8 units/L (7-56) 05/06/22 23:14 Alkaline Phosphatase 164 units/L (35-129) H 05/06/22 23:14 Total Creatine Kinase 66 units/L (30-135) 05/07/22 11:53 CK-MB (CK-2) 3.0 ng/mL (0.0-4.0) 05/07/22 11:53 CK-MB (CK-2) Rel Index 4.5 (0-4) H 05/07/22 11:53 Troponin T 0.064 ng/mL (0.00-0.029) H 05/07/22 11:53 Total Protein 5.1 g/dL (6.3-8.2) L 05/06/22 23:14 Albumin 2.7 g/dL (3.9-5) L 05/06/22 23:14 Albumin/Globulin Ratio 1.1 % 05/06/22 23:14 Triglycerides 144 mg/dL (2-149) 05/07/22 11:53 Cholesterol 81 mg/dL (50-199) 05/07/22 11:53 LDL Cholesterol Direct 22 mg/dL (50-130) L 05/07/22 11:53 HDL Cholesterol 20 mg/dL (40-59) L 05/07/22 11:53 Cholesterol/HDL Ratio 4.05 % 05/07/22 11:53 Lipase 19 units/L (13-60) 05/06/22 23:14 TSH 3.800 mlU/mL (0.270-4.200) 05/07/22 11:53 Blood Type O NEGATIVE 05/06/22 23:14 Antibody Screen Negative 05/06/22 23:14 Nutrition/Malnutrition Assess - Dietary Evaluation Nutrition/Malnutrition Findings: Nutrition Notes Start: 05/07/22 12:16 Freq: Status: Discharge Protocol: Document 05/07/22 12:16 CM (Rec: 05/07/22 13:01 CM [id number]) Co-Sign 05/07/22 12:16 WW Nutrition Notes Need for Assessment generated from: sharepoint net developer,Education Initial or Follow up Assessment Current Diagnosis Coronary Artery Disease Other Pertinent Diagnosis AMS, Upper GI bleed, A fib w/ RVR Current Diet NPO Labs/Tests Na 135 CO2 15 BUN 74 Pertinent Medications Reviewed Height 5 ft 8 in Weight 81 kg Usual Body Weight 72.7 kg [place] Body Weight (kg) 63.63 BMI 27.1 Intake Prior to Admission Good Weight change and time frame 14-23lbs of unintentional wt loss STORE SPECIALIST per malnutrition screening tool assessment. Subjective/Other Information RD assessment for malnutrition screening tool 2 and diet education. Pt s/p PEG with upper GI bleed and AMS in ICU - unsure accuracy for conversation / inappropriate for diet education at this time. Pt reported a UBW of 160lb as of 6mo ago and states that she now weighs 140lb. Wt taken at time of visit - 133lb. Nutrition-focused physical examination performed indicating severe muscle wasting. Fluid retention may be masking additional losses. Burn Absent Trauma Absent GI Symptoms None Difficulty In Swallowing Food Allergy No Skin Integrity/Comment WNL Current % PO Other Minimum of two criteria No Muscle Mass Moderate Depletion (severe) Fluid Accumulation N/A Reduced Plastic Injection Mold Maker Strength N/A (non-severe) Protein-Calorie Malnutrition N\A #1 Nutrition Diagnosis Malnutrition Etiology Predicted undernutrition As Evidenced by Signs and Symptoms Severe muscle wasting (baptist, interosseous, acromion, clavicle) Is patient on ventilator? No Is Patient Ambulatory and/or Out of Bed No REE-([facility]-confined to bed) 1642.236 Kcal/Kg value to use for calculation 27 Approximate Energy Requirements Using 2187 kcal/Kg Calculation Used for Recommendations Kcal/kg Additional Notes Protein: 1.2-2.0g/kg ABW; 97- 162g PRO q day Fluids: 1500-1900mL q day or per MD Nutrition Intervention Goal #1 Pt diet to advance when medically feasible Goal #2 Pt to maintain current wt within 2.5% throughout LOS with exception of fluid loss/ retention. Follow-Up By: 06/01/22 Additional Comments Monitor diet advancement and wt status
[2022-05-07] MEDS: NORepinephrine/NS 8 MG-250 ML 8 MG/250 ML INFUS..BTL IV SCH ×2 (11:40→22:12)
--- NOTE | 2022-05-07 11:43 | Consultation ---
History of Present Illness Consult date: 05/07/22 Requesting physician: MARINA HARDEN Reason for consult: other (Atrial fibrillation with RVR; Acute G.I. Bleed) History of present illness: PULMONARY/CCM CONSULT NOTE (Full dictation # [id number]) Please see dictated notes for full details Past History Past Medical History: acute [place], arthritis Past Surgical History: CABG, Other (PEG tube placement) Social history: no significant social history Family history: no significant family history Medications and Allergies Allergies Allergy/AdvReac Type Severity Reaction Status Date / Time No Known Allergies Allergy Unverified 05/02/22 10:27 Home Medications Medication Instructions Recorded Confirmed Last Taken Type Acetaminophen [Tylenol Extra 1,000 mg PO TID 05/03/22 05/03/22 Unknown History Strength] Acetaminophen [Tylenol] 1,000 mg PO Q8HR 05/03/22 05/03/22 Unknown History Apixaban [Eliquis] 5 mg PO BID 05/03/22 05/03/22 Unknown History Aspirin [[place]] 81 mg PO DAILY 05/03/22 05/03/22 Unknown History AtorvaSTATin [Lipitor] 40 mg PO QHS 05/03/22 05/03/22 Unknown History Calcium Carbonate/Vitamin D3 1 tab PO QID 05/03/22 05/03/22 Unknown History [Calcium 500 mg Chewable Tablet] Diclofenac 1% [Diclofenac 1% 100 gm TP BID 05/03/22 05/03/22 Unknown History topical gel] Furosemide [Lasix] 40 mg PO Q48HR 05/03/22 05/03/22 Unknown History Lidocaine [Lidocaine Cream] 5 gm TP DAILY 05/03/22 05/03/22 Unknown History Metoclopramide HCl [Reglan TAB] 5 mg PO BID 05/03/22 05/03/22 Unknown History Multivit-Min/Iron Fum/Folic AC 1 each PO DAILY 05/03/22 05/04/22 Unknown History [Fhpwd-Oemhpwi-Psprgolh Tablet] Nitro-Bid 0.5 inch .ROUTE 6XD 05/03/22 05/03/22 Unknown History Pantoprazole [Protonix TAB] 40 mg PO DAILY 05/03/22 05/03/22 Unknown History guaiFENesin ER [Mucinex ER] 1,200 mg PO BID 05/03/22 05/03/22 Unknown History Active Meds: Active Medications Acetaminophen (Acetaminophen 325 Mg Tab) 650 mg PO Q6H PRN PRN Reason: Pain MILD(1-3)/Fever >100.5/RAMIREZ dilTIAZem/NaCl (Diltiazem/Nacl 125mg/125ml) 125 mg in 125 mls @ 5 mls/hr IV TITRATE RENE; Protocol Last Titration: 05/07/22 10:08 Dose: Infused Sodium Chloride (Nacl 0.9% 1000 Ml) 1,000 mls @ 999 mls/hr IV BOLUS ONE Stop: 05/07/22 12:00 Last Admin: 05/07/22 10:19 Dose: 999 mls/hr Sodium Chloride (Nacl 0.9% 1000 Ml) 1,000 mls @ 999 mls/hr IV BOLUS ONE Stop: 05/07/22 13:00 Last Admin: 05/07/22 11:40 Dose: 999 mls/hr NORepinephrine/NS 8 MG-250 ML (Norepinephrine/Ns 8 Mg-250 Ml (Double Conc)) 8 mg in 250 mls @ 15.188 mls/hr IV TITRATE RENE; Protocol Last Admin: 05/07/22 11:40 Dose: 0.1 mcg/kg/min, 15.188 mls/hr Octreotide Acetate 500 mcg/ (Sodium Chloride) 101 mls @ 5.05 mls/hr IV TITR RENE; Protocol Pantoprazole Sodium 80 mg/ (Sodium Chloride) 100 mls @ 10 mls/hr IV DIRECT RENE Magnesium Hydroxide (Magnesium Hydroxide (Mom) Oral Liqd Udc) 30 ml PO Q4H PRN PRN Reason: Constipation Morphine Sulfate (Morphine 2 Mg/1 Ml Inj) 2 mg IV Q4H PRN PRN Reason: Pain, Moderate (4-6) Ondansetron HCl (Ondansetron 4 Mg/2 Ml Inj) 4 mg IV Q8H PRN PRN Reason: Nausea And Vomiting Last Admin: 05/07/22 10:11 Dose: 4 mg Sodium Chloride (Sodium Chloride 0.9% 10 Ml Flush Syringe) 10 ml IV BID RENE Last Admin: 05/07/22 09:40 Dose: 10 ml Sodium Chloride (Sodium Chloride 0.9% 10 Ml Flush Syringe) 10 ml IV PRN PRN PRN Reason: LINE FLUSH Physical Examination Vital signs: Vital Signs Pulse Resp Pulse Ox 127 H 21 98 05/06/22 22:13 05/06/22 22:13 05/06/22 22:13 Results - Laboratory Findings CBC and BMP: 05/07/22 11:53 05/06/22 23:14 PT/INR, D-dimer PT 25.6 Sec. (12.2-14.9) H 05/06/22 23:14 INR 1.98 (0.87-1.13) H 05/06/22 23:14 Abnormal lab findings: Abnormal Labs 05/06/22 05/06/22 05/06/22 23:14 23:14 23:14 Hgb 14.8 H Hct 45.7 H RDW 16.6 H Plt Count 139 L PT 25.6 H INR 1.98 H Sodium 135 L Carbon Dioxide 15 L BUN 74 H Glucose 115 H Lactic Acid Calcium 7.7 L Magnesium 2.40 H Alkaline Phosphatase 164 H Total Protein 5.1 L Albumin 2.7 L 05/06/22 23:14 Hgb Hct RDW Plt Count PT INR Sodium Carbon Dioxide BUN Glucose Lactic Acid 2.30 H* Calcium Magnesium Alkaline Phosphatase Total Protein Albumin
[2022-05-07 12:13] LABS: ABG Base Excess -17.9 mmol/L (-2.0-3.0); ABG HCO3 8.8 mmol/L (20.0-26.0); ABG Methemoglobin 0.3 % (0.0-1.5); ABG Oxygen Saturation 99.5 % (95.0-99.0); ABG PCO2 24.3 mm Hg
[2022-05-07 12:30] LABS: ABG PH 7.178 pH Units (7.350-7.450); ABG PO2 385.5 mm Hg (80.0-90.0)
[2022-05-07 12:40] LABS: Hematocrit 42.7 % (30.3-42.9); Hemoglobin 13.1 gm/dl (10.1-14.3)
--- NOTE | 2022-05-07 12:57 | Procedure Note ---
Date of procedure: 05/07/22 Pre-op diagnosis: Acute Blood Loss, Hypovolemic Shock Post-op diagnosis: same Procedure: Right Internal Jugular Central Line Placement Patient was evaluated and required Central line placement due to pressor requirement Telephone consent obtained from patient's daughter and Granddaughter A time-out was completed verifying correct patient, procedure, site, and positioning. Hand hygiene were performed immediately prior to the procedure and sterile technique was used throughout the procedure. The patient's right neck was prepped with chlorhexidine scrub then draped in a sterile fashion. 1% Lidocaine was used to anesthetize the surrounding skin area. Ultrasound was utilized to localize the right internal jugular vein without difficulty. Then the right internal jugular vein was accessed using ultrasound guidance and a triple lumen catheter was introduced using the Seldinger technique. The catheter threaded smoothly over the guidewire and advanced easily into the vein and brisk blood return was observed from each lumen. Each lumen were flushed and clamped, then the catheter was sutured in place, a Biopatch was placed at the insertion site, and covered with a sterile dressing. Patient tolerated the procedure well, no signs of any adverse reaction noted. CXR shows good placement without PTX, CVC is okay to use. Total Time Spent with Patient (Minutes): 60 minutes Anesthesia: local Surgeon: MALU CANAS Estimated blood loss: minimal Condition: critical Disposition: ICU
[2022-05-07 13:00] LABS: Hematocrit 42.7 % (30.3-42.9); Hemoglobin 13.1 gm/dl (10.1-14.3)
[2022-05-07] MEDS ORDERED: DEXTROSE 5% IN WATER 1,000 ML with SODIUM BICARBONATE 150 MEQ IV SCH (13:00)
[2022-05-07] MEDS ORDERED: OCTREOTIDE 500 MCG in SODIUM CHLORIDE 0.9% 100 ML IV SCH (13:00)
--- NOTE | 2022-05-07 13:04 | XRay Report ---
XR chest 1V ap INDICATION / CLINICAL INFORMATION: central line placement. COMPARISON: Radiograph from yesterday. FINDINGS: SUPPORT DEVICES: Right IJ central venous catheter projects over the right atrium. HEART /PULMONARY VASCULATURE: Unchanged. LUNGS / PLEURA: Streaky bibasilar volume loss/scarring. No acute airspace disease. No sizable pleural effusion. No pneumothorax. IMPRESSION: Right IJ central venous catheter projects over the right atrium. Otherwise stable chest. Signer Name: Cory Em MD Signed: 05/07/2022 12:59 PM Workstation Name: [id number]
--- NOTE | 2022-05-07 13:12 | Consultation ---
History of Present Illness Consult date: 05/07/22 Requesting physician: MARINA HARDEN Consult reason: atrial fibrillation History of present illness: Patient is 71-year-old female with a past medical history of recent STEMI 02/2022, CABG x2 03/01/2022, history of tobacco abuse, who presented to the ED for nausea, vomiting, and palpitations. History is taken from chart and review of records due to patient's mental status at time of interview. Per documentation patient was recently discharged from this hospital on 05/05/2022 due to a GI bleed. At that time patient had EGD which showed diffuse gastritis and discharged. During this admission in the ED patient was found to be in A. fib with RVR and started on Cardizem drip. Labs in the ED showed elevated lactic acid. This a.m. reported by staff that patient had large bloody emesis. Of note this past February patient was admitted to [facility] for CABG after NSTEMI and had prolonged stay. During her stay patient was found to have increased risk of bleeding and had multiple units of PRBCs transfused. Patient is previously unknown to our practice. Cardiology was consulted for A. fib with RVR Past History Past Medical History: acute [place], arthritis Past Surgical History: CABG, Other (PEG tube placement) Social history: smoking Family history: no significant family history Medications and Allergies Allergies Allergy/AdvReac Type Severity Reaction Status Date / Time No Known Allergies Allergy Unverified 05/02/22 10:27 Home Medications Medication Instructions Recorded Confirmed Last Taken Type Acetaminophen [Tylenol Extra 1,000 mg PO TID 05/03/22 05/03/22 Unknown History Strength] Acetaminophen [Tylenol] 1,000 mg PO Q8HR 05/03/22 05/03/22 Unknown History Apixaban [Eliquis] 5 mg PO BID 05/03/22 05/03/22 Unknown History Aspirin [Vazalore] 81 mg PO DAILY 05/03/22 05/03/22 Unknown History AtorvaSTATin [Lipitor] 40 mg PO QHS 05/03/22 05/03/22 Unknown History Calcium Carbonate/Vitamin D3 1 tab PO QID 05/03/22 05/03/22 Unknown History [Calcium 500 mg Chewable Tablet] Diclofenac 1% [Diclofenac 1% 100 gm TP BID 05/03/22 05/03/22 Unknown History topical gel] Furosemide [Lasix] 40 mg PO Q48HR 05/03/22 05/03/22 Unknown History Lidocaine [Lidocaine Cream] 5 gm TP DAILY 05/03/22 05/03/22 Unknown History Metoclopramide HCl [Reglan TAB] 5 mg PO BID 05/03/22 05/03/22 Unknown History Multivit-Min/Iron Fum/Folic AC 1 each PO DAILY 05/03/22 05/04/22 Unknown History [Zrkmj-Fwminjj-Bksdpqzw Tablet] Nitro-Bid 0.5 inch .ROUTE 6XD 05/03/22 05/03/22 Unknown History Pantoprazole [Protonix TAB] 40 mg PO DAILY 05/03/22 05/03/22 Unknown History guaiFENesin ER [Mucinex ER] 1,200 mg PO BID 05/03/22 05/03/22 Unknown History Active Meds: Active Medications Acetaminophen (Acetaminophen 325 Mg Tab) 650 mg PO Q6H PRN PRN Reason: Pain MILD(1-3)/Fever >100.5/RAMIREZ dilTIAZem/NaCl (Diltiazem/Nacl 125mg/125ml) 125 mg in 125 mls @ 5 mls/hr IV TITRATE RENE; Protocol Last Titration: 05/07/22 10:08 Dose: Infused NORepinephrine/NS 8 MG-250 ML (Norepinephrine/Ns 8 Mg-250 Ml (Double Conc)) 8 mg in 250 mls @ 15.188 mls/hr IV TITRATE RENE; Protocol Last Admin: 05/07/22 11:40 Dose: 0.1 mcg/kg/min, 15.188 mls/hr Octreotide Acetate 500 mcg/ (Sodium Chloride) 101 mls @ 5.05 mls/hr IV TITR RENE; Protocol Pantoprazole Sodium 80 mg/ (Sodium Chloride) 100 mls @ 10 mls/hr IV DIRECT RENE Sodium Bicarbonate 150 meq/ (Dextrose) 1,150 mls @ 75 mls/hr IV DIRECT RENE Stop: 05/09/22 04:19 Magnesium Hydroxide (Magnesium Hydroxide (Mom) Oral Liqd Udc) 30 ml PO Q4H PRN PRN Reason: Constipation Morphine Sulfate (Morphine 2 Mg/1 Ml Inj) 2 mg IV Q4H PRN PRN Reason: Pain, Moderate (4-6) Ondansetron HCl (Ondansetron 4 Mg/2 Ml Inj) 4 mg IV Q8H PRN PRN Reason: Nausea And Vomiting Last Admin: 05/07/22 10:11 Dose: 4 mg Sodium Chloride (Sodium Chloride 0.9% 10 Ml Flush Syringe) 10 ml IV BID RENE Last Admin: 05/07/22 09:40 Dose: 10 ml Sodium Chloride (Sodium Chloride 0.9% 10 Ml Flush Syringe) 10 ml IV PRN PRN PRN Reason: LINE FLUSH Review of Systems ROS unobtainable: due to mental status Physical Examination Vital Signs Pulse Resp Pulse Ox 127 H 21 98 05/06/22 22:13 05/06/22 22:13 05/06/22 22:13 General appearance: other (AMS) Neck: Positive: trachea midline Cardiac: Positive: Reg Rate and Rhythm Lungs: Positive: Decreased Breath Sounds Neuro: Positive: Other ([place] to assess) Abdomen: Positive: Soft Skin: Negative: Rash, Suspicious Lesions, Ulceration Extremities: Absent: edema Results 05/07/22 11:53 05/06/22 23:14 Cardiac Enzymes 05/06/22 05/06/22 05/06/22 Range/Units 23:14 23:14 23:14 WBC 10.3 (4.5-11.0) K/mm3 RBC 4.81 (3.65-5.03) M/mm3 Hgb 14.8 H (10.1-14.3) gm/dl Hct 45.7 H (30.3-42.9) % MCV 95 (79-97) fl MCH 31 (28-32) pg MCHC 32 (30-34) % RDW 16.6 H (13.2-15.2) % Plt Count 139 L (140-440) K/mm3 Lymph % (Auto) Not Reportable [place] % (Auto) Not Reportable Eos % (Auto) Not Reportable Baso % (Auto) Not Reportable Lymph # (Auto) Not Reportable [place] # (Auto) Not Reportable Eos # (Auto) Not Reportable Baso # (Auto) Not Reportable Seg Neutrophils # Not Reportable PT 25.6 H (12.2-14.9) Sec. INR 1.98 H (0.87-1.13) ABG pH (7.350-7.450) pH Units ABG pCO2 mm Hg ABG pO2 (80.0-90.0) mm Hg ABG HCO3 (20.0-26.0) mmol/L ABG O2 Saturation (95.0-99.0) % ABG O2 Content (0.0-44) ABG Base Excess (-2.0-3.0) mmol/L ABG Hemoglobin (12.0-16.0) gm/dl ABG Carboxyhemoglobin (0.0-5.0) % ABG Methemoglobin (0.0-1.5) % Oxyhemoglobin (95.0-99.0) % FiO2 % Sodium 135 L (137-145) mmol/L Potassium 3.9 (3.6-5.0) mmol/L Chloride 101.3 (98-107) mmol/L Carbon Dioxide 15 L (22-30) mmol/L Anion Gap 23 mmol/L BUN 74 H (7-17) mg/dL Creatinine 1.2 (0.6-1.2) mg/dL Estimated GFR 44 ml/min BUN/Creatinine Ratio 62 % Glucose 115 H (65-100) mg/dL Lactic Acid (0.7-2.0) mmol/L Calcium 7.7 L (8.4-10.2) mg/dL Magnesium 2.40 H (1.7-2.3) mg/dL Total Bilirubin 0.70 (0.1-1.2) mg/dL AST 32 (5-40) units/L ALT 8 (7-56) units/L Alkaline Phosphatase 164 H (35-129) units/L Total Creatine Kinase (30-135) units/L CK-MB (CK-2) (0.0-4.0) ng/mL CK-MB (CK-2) Rel Index (0-4) Troponin T (0.00-0.029) ng/mL Total Protein 5.1 L (6.3-8.2) g/dL Albumin 2.7 L (3.9-5) g/dL Albumin/Globulin Ratio 1.1 % Lipase 19 (13-60) units/L 05/06/22 05/07/22 05/07/22 Range/Units 23:14 00:25 07:58 WBC (4.5-11.0) K/mm3 RBC (3.65-5.03) M/mm3 Hgb 13.1 (10.1-14.3) gm/dl Hct 42.7 (30.3-42.9) % MCV (79-97) fl MCH (28-32) pg MCHC (30-34) % RDW (13.2-15.2) % Plt Count 133 L (140-440) K/mm3 Lymph % (Auto) [place] % (Auto) Eos % (Auto) Baso % (Auto) Lymph # (Auto) [place] # (Auto) Eos # (Auto) Baso # (Auto) Seg Neutrophils # PT (12.2-14.9) Sec. INR (0.87-1.13) ABG pH (7.350-7.450) pH Units ABG pCO2 mm Hg ABG pO2 (80.0-90.0) mm Hg ABG HCO3 (20.0-26.0) mmol/L ABG O2 Saturation (95.0-99.0) % ABG O2 Content (0.0-44) ABG Base Excess (-2.0-3.0) mmol/L ABG Hemoglobin (12.0-16.0) gm/dl ABG Carboxyhemoglobin (0.0-5.0) % ABG Methemoglobin (0.0-1.5) % Oxyhemoglobin (95.0-99.0) % FiO2 % Sodium (137-145) mmol/L Potassium (3.6-5.0) mmol/L Chloride (98-107) mmol/L Carbon Dioxide (22-30) mmol/L Anion Gap mmol/L BUN (7-17) mg/dL Creatinine (0.6-1.2) mg/dL Estimated GFR ml/min BUN/Creatinine Ratio % Glucose (65-100) mg/dL Lactic Acid 2.30 H* 1.70 (0.7-2.0) mmol/L Calcium (8.4-10.2) mg/dL Magnesium (1.7-2.3) mg/dL Total Bilirubin (0.1-1.2) mg/dL AST (5-40) units/L ALT (7-56) units/L Alkaline Phosphatase (35-129) units/L Total Creatine Kinase (30-135) units/L CK-MB (CK-2) (0.0-4.0) ng/mL CK-MB (CK-2) Rel Index (0-4) Troponin T (0.00-0.029) ng/mL Total Protein (6.3-8.2) g/dL Albumin (3.9-5) g/dL Albumin/Globulin Ratio % Lipase (13-60) units/L 05/07/22 05/07/22 05/07/22 Range/Units 11:50 11:53 11:53 WBC (4.5-11.0) K/mm3 RBC (3.65-5.03) M/mm3 Hgb 13.1 (10.1-14.3) gm/dl Hct 42.7 (30.3-42.9) % MCV (79-97) fl MCH (28-32) pg MCHC (30-34) % RDW (13.2-15.2) % Plt Count 133 L (140-440) K/mm3 Lymph % (Auto) [place] % (Auto) Eos % (Auto) Baso % (Auto) Lymph # (Auto) [place] # (Auto) Eos # (Auto) Baso # (Auto) Seg Neutrophils # PT (12.2-14.9) Sec. INR (0.87-1.13) ABG pH 7.178 L* (7.350-7.450) pH Units ABG pCO2 24.3 mm Hg ABG pO2 385.5 H (80.0-90.0) mm Hg ABG HCO3 8.8 L (20.0-26.0) mmol/L ABG O2 Saturation 99.5 H (95.0-99.0) % ABG O2 Content 18.2 (0.0-44) ABG Base Excess -17.9 L (-2.0-3.0) mmol/L ABG Hemoglobin 12.5 (12.0-16.0) gm/dl ABG Carboxyhemoglobin 1.1 (0.0-5.0) % ABG Methemoglobin 0.3 (0.0-1.5) % Oxyhemoglobin 98.2 (95.0-99.0) % FiO2 100 % Sodium (137-145) mmol/L Potassium (3.6-5.0) mmol/L Chloride (98-107) mmol/L Carbon Dioxide (22-30) mmol/L Anion Gap mmol/L BUN (7-17) mg/dL Creatinine (0.6-1.2) mg/dL Estimated GFR ml/min BUN/Creatinine Ratio % Glucose (65-100) mg/dL Lactic Acid (0.7-2.0) mmol/L Calcium (8.4-10.2) mg/dL Magnesium (1.7-2.3) mg/dL Total Bilirubin (0.1-1.2) mg/dL AST (5-40) units/L ALT (7-56) units/L Alkaline Phosphatase (35-129) units/L Total Creatine Kinase 66 (30-135) units/L CK-MB (CK-2) 3.0 (0.0-4.0) ng/mL CK-MB (CK-2) Rel Index 4.5 H (0-4) Troponin T 0.064 H (0.00-0.029) ng/mL Total Protein (6.3-8.2) g/dL Albumin (3.9-5) g/dL Albumin/Globulin Ratio % Lipase (13-60) units/L Coagulation 05/06/22 Range/Units 23:14 PT 25.6 H (12.2-14.9) Sec. INR 1.98 H (0.87-1.13) CBC 05/06/22 05/07/22 05/07/22 Range/Units 23:14 07:58 11:53 WBC 10.3 (4.5-11.0) K/mm3 RBC 4.81 (3.65-5.03) M/mm3 Hgb 14.8 H 13.1 13.1 (10.1-14.3) gm/dl Hct 45.7 H 42.7 42.7 (30.3-42.9) % Plt Count 139 L 133 L 133 L (140-440) K/mm3 Lymph # (Auto) Not Reportable [place] # (Auto) Not Reportable Eos # (Auto) Not Reportable Baso # (Auto) Not Reportable Comprehensive Metabolic Panel 05/06/22 Range/Units 23:14 Sodium 135 L (137-145) mmol/L Potassium 3.9 (3.6-5.0) mmol/L Chloride 101.3 (98-107) mmol/L Carbon Dioxide 15 L (22-30) mmol/L BUN 74 H (7-17) mg/dL Creatinine 1.2 (0.6-1.2) mg/dL Glucose 115 H (65-100) mg/dL Calcium 7.7 L (8.4-10.2) mg/dL AST 32 (5-40) units/L ALT 8 (7-56) units/L Alkaline Phosphatase 164 H (35-129) units/L Total Protein 5.1 L (6.3-8.2) g/dL Albumin 2.7 L (3.9-5) g/dL - Imaging and Cardiology Echo: pending, report reviewed EKG: report reviewed, image reviewed EKG interpretations - Telemetry EKG Rhythm: Sinus Rhythm - EKG Sinus rhythms and dysrhythmias: sinus rhythm Assessment and Plan Patient is 71-year-old female with a past medical history of recent STEMI 02/2022, CABG x2 03/01/2022, history of tobacco abuse, who presented to the ED for nausea, vomiting, and palpitations. AMS Acute respiratory failure-pulmonology following GI bleed-GI following A. fib with RVR Coronary artery disease S/p CABG x2 LIMALAD, SVGRCA on 03/01/2022 Lactic acidosis History of STEMI Echo 03/19/2022- LVEF 55 - 60%. LV systolic function is normal. Grade II (moderate) diastolic dysfunction. Moderately elevated RV systolic pressure. Plan: EKG on admission shows A. fib rate 170s Repeat EKG shows sinus rhythm no acute ischemic changes. Troponins pending Furthermore at this time patient is not a candidate for cardiac cath due to massive GI bleed and currently requiring pressor Telemetry reviewed patient appears sinus rhythm 70s If patient converts back to A. fib with RVR recommend IV amiodarone bolus and drip No anticoagulation due to GI bleed/hemoptysis Per review of records even though patient had recent CABG patient was only initiated on aspirin due to risk of GI bleed Patient was also not started on further GDMT including beta-blockers or MANDI/ARB due to hypotension Echo pending Guarded prognosis Patient seen in conjunction with Dr. Harris who agrees with plan of care 30 minutes of critical care time spent in care and coordination of patient - Patient Problems (1) Acute respiratory failure Current Visit: Yes Status: Acute (2) Atrial fibrillation Current Visit: Yes Status: Acute (3) GI bleed Current Visit: Yes Status: Acute (4) Coronary artery disease Current Visit: No Status: Chronic Qualifiers: Coronary Disease-Associated Artery/Lesion type: [place] artery [place] vs. transplanted heart: [place] heart Associated angina: without angina Qualified Code(s): I25.10 - Atherosclerotic heart disease of [place] coronary artery without angina pectoris
[2022-05-07] MEDS: PANTOPRAZOLE 80 MG in SODIUM CHLORIDE 0.9% 100 ML IV SCH ×2 (14:05→22:10)
[2022-05-07 14:14] LABS: Chol/HDL Ratio 4.05 %
--- NOTE | 2022-05-07 14:59 | Gastroenterology Consultation ---
History of Present Illness - Reason for Consult Consult date: 05/07/22 gi bleed - History of Present Illness This is a 71-year-old female with history of tobacco abuse, recent RCA STEMI and emergent CABG at [facility] in March 2022 and recent admission for GI bleed. Presenting from [facility] overnight symptoms of GI bleed. Patient noted to be hypotensive and tachycardic with A. fib with RVR along with metabolic acidosis. Patient reportedly had vomited blood at the [facility]. Patient was admitted to the ICU. Patient was started on facemask oxygen and pressor with Levophed. The PEG tube was connected to suction and noted to have 1 L of bloody output noted. The output has slowed down this afternoon. Patient acidotic with ABG showing pH of 7.1. Hemoglobin on admission at 14 which is same as her recent discharge the day before. Hemoglobin today at 13. Patient reports abdominal discomfort and distention. Of note patient had EGD doing last admission on May 02 showing diffuse erosive gastritis but no active bleeding noted. Patient's hemoglobin remained stable throughout the rest of the hospitalization. Per patient, no prior history of colonoscopy. Medication list reviewed. Past History Past Medical History: acute [place], arthritis Past Surgical History: CABG, Other (PEG tube placement) Social history: no significant social history Family history: no significant family history Medications and Allergies Allergies Allergy/AdvReac Type Severity Reaction Status Date / Time No Known Allergies Allergy Unverified 05/02/22 10:27 Home Medications Medication Instructions Recorded Confirmed Last Taken Type Acetaminophen [Tylenol Extra 1,000 mg PO TID 05/03/22 05/03/22 Unknown History Strength] Acetaminophen [Tylenol] 1,000 mg PO Q8HR 05/03/22 05/03/22 Unknown History Apixaban [Eliquis] 5 mg PO BID 05/03/22 05/03/22 Unknown History Aspirin [Vazalore] 81 mg PO DAILY 05/03/22 05/03/22 Unknown History AtorvaSTATin [Lipitor] 40 mg PO QHS 05/03/22 05/03/22 Unknown History Calcium Carbonate/Vitamin D3 1 tab PO QID 05/03/22 05/03/22 Unknown History [Calcium 500 mg Chewable Tablet] Diclofenac 1% [Diclofenac 1% 100 gm TP BID 05/03/22 05/03/22 Unknown History topical gel] Furosemide [Lasix] 40 mg PO Q48HR 05/03/22 05/03/22 Unknown History Lidocaine [Lidocaine Cream] 5 gm TP DAILY 05/03/22 05/03/22 Unknown History Metoclopramide HCl [Reglan TAB] 5 mg PO BID 05/03/22 05/03/22 Unknown History Multivit-Min/Iron Fum/Folic AC 1 each PO DAILY 05/03/22 05/04/22 Unknown History [Rbdpw-Ylieita-Gelnkhjg Tablet] Nitro-Bid 0.5 inch .ROUTE 6XD 05/03/22 05/03/22 Unknown History Pantoprazole [Protonix TAB] 40 mg PO DAILY 05/03/22 05/03/22 Unknown History guaiFENesin ER [Mucinex ER] 1,200 mg PO BID 05/03/22 05/03/22 Unknown History Active Meds: Active Medications Acetaminophen (Acetaminophen 325 Mg Tab) 650 mg PO Q6H PRN PRN Reason: Pain MILD(1-3)/Fever >100.5/RAMIREZ dilTIAZem/NaCl (Diltiazem/Nacl 125mg/125ml) 125 mg in 125 mls @ 5 mls/hr IV TITRATE RENE; Protocol Last Titration: 05/07/22 10:08 Dose: Infused NORepinephrine/NS 8 MG-250 ML (Norepinephrine/Ns 8 Mg-250 Ml (Double Conc)) 8 mg in 250 mls @ 15.188 mls/hr IV TITRATE RENE; Protocol Last Admin: 05/07/22 11:40 Dose: 0.1 mcg/kg/min, 15.188 mls/hr Octreotide Acetate 500 mcg/ (Sodium Chloride) 101 mls @ 5.05 mls/hr IV TITR RENE; Protocol Last Admin: 05/07/22 14:05 Dose: 25 mcg/hr, 5.05 mls/hr Pantoprazole Sodium 80 mg/ (Sodium Chloride) 100 mls @ 10 mls/hr IV DIRECT RENE Last Admin: 05/07/22 14:05 Dose: 8 mg/hr, 10 mls/hr Sodium Bicarbonate 150 meq/ (Dextrose) 1,150 mls @ 75 mls/hr IV DIRECT RENE Stop: 05/09/22 04:19 Last Admin: 05/07/22 14:44 Dose: 75 mls/hr Magnesium Hydroxide (Magnesium Hydroxide (Mom) Oral Liqd Udc) 30 ml PO Q4H PRN PRN Reason: Constipation Morphine Sulfate (Morphine 2 Mg/1 Ml Inj) 2 mg IV Q4H PRN PRN Reason: Pain, Moderate (4-6) Ondansetron HCl (Ondansetron 4 Mg/2 Ml Inj) 4 mg IV Q8H PRN PRN Reason: Nausea And Vomiting Last Admin: 05/07/22 10:11 Dose: 4 mg Sodium Chloride (Sodium Chloride 0.9% 10 Ml Flush Syringe) 10 ml IV BID RENE Last Admin: 05/07/22 09:40 Dose: 10 ml Sodium Chloride (Sodium Chloride 0.9% 10 Ml Flush Syringe) 10 ml IV PRN PRN PRN Reason: LINE FLUSH Review of Systems - Review of Systems All systems: negative Constitutional: chills, fatigue, weakness Cardiovascular: no chest pain Gastrointestinal: abdominal pain, nausea, vomiting, hematemesis, no melena, no hematochezia Musculoskeletal: gait dysfunction Neurological: weakness Psychiatric: anxiety Endocrine: no cold intolerance Hematologic/Lymphatic: easy bruising Allergic/Immunologic: no wheezing Exam - Constitutional Vital Signs: Temp Pulse Resp BP Pulse Ox 95.3 F L 84 27 H 94/46 99 05/07/22 12:00 05/07/22 14:01 05/07/22 14:01 05/07/22 14:01 05/07/22 14:01 General appearance: mild distress - EENT Eyes: EOM intact ENT: hearing intact - Neck Neck: supple - Respiratory Respiratory effort: labored - Cardiovascular Rhythm: irregularly irregular Heart Sounds: Present: S1 & S2 - Gastrointestinal General gastrointestinal: Present: soft, tender, distended - Integumentary Integumentary: Present: clear - Neurologic Neurological: alert and oriented x3 - Psychiatric Psychiatric: appropriate mood/affect - Labs CBC & Chem 7: 05/07/22 17:33 05/06/22 23:14 Lab Results: Laboratory Results - last 24 hr 05/06/22 05/06/22 05/06/22 23:14 23:14 23:14 WBC 10.3 RBC 4.81 Hgb 14.8 H Hct 45.7 H MCV 95 MCH 31 MCHC 32 RDW 16.6 H Plt Count 139 L Lymph % (Auto) Not Reportable [place] % (Auto) Not Reportable Eos % (Auto) Not Reportable Baso % (Auto) Not Reportable Lymph # (Auto) Not Reportable [place] # (Auto) Not Reportable Eos # (Auto) Not Reportable Baso # (Auto) Not Reportable Seg Neutrophils # Not Reportable PT 25.6 H INR 1.98 H ABG pH ABG pCO2 ABG pO2 ABG HCO3 ABG O2 Saturation ABG O2 Content ABG Base Excess ABG Hemoglobin ABG Carboxyhemoglobin ABG Methemoglobin Oxyhemoglobin FiO2 Sodium 135 L Potassium 3.9 Chloride 101.3 Carbon Dioxide 15 L Anion Gap 23 BUN 74 H Creatinine 1.2 Estimated GFR 44 BUN/Creatinine Ratio 62 Glucose 115 H Lactic Acid Calcium 7.7 L Magnesium 2.40 H Total Bilirubin 0.70 AST 32 ALT 8 Alkaline Phosphatase 164 H Total Creatine Kinase CK-MB (CK-2) CK-MB (CK-2) Rel Index Troponin T Total Protein 5.1 L Albumin 2.7 L Albumin/Globulin Ratio 1.1 Triglycerides Cholesterol LDL Cholesterol Direct HDL Cholesterol Cholesterol/HDL Ratio Lipase 19 TSH Blood Type Antibody Screen 05/06/22 05/06/22 05/07/22 23:14 23:14 00:25 WBC RBC Hgb Hct MCV MCH MCHC RDW Plt Count Lymph % (Auto) [place] % (Auto) Eos % (Auto) Baso % (Auto) Lymph # (Auto) [place] # (Auto) Eos # (Auto) Baso # (Auto) Seg Neutrophils # PT INR ABG pH ABG pCO2 ABG pO2 ABG HCO3 ABG O2 Saturation ABG O2 Content ABG Base Excess ABG Hemoglobin ABG Carboxyhemoglobin ABG Methemoglobin Oxyhemoglobin FiO2 Sodium Potassium Chloride Carbon Dioxide Anion Gap BUN Creatinine Estimated GFR BUN/Creatinine Ratio Glucose Lactic Acid 2.30 H* 1.70 Calcium Magnesium Total Bilirubin AST ALT Alkaline Phosphatase Total Creatine Kinase CK-MB (CK-2) CK-MB (CK-2) Rel Index Troponin T Total Protein Albumin Albumin/Globulin Ratio Triglycerides Cholesterol LDL Cholesterol Direct HDL Cholesterol Cholesterol/HDL Ratio Lipase TSH Blood Type O NEGATIVE Antibody Screen Negative 05/07/22 05/07/22 05/07/22 07:58 11:50 11:53 WBC RBC Hgb 13.1 13.1 Hct 42.7 42.7 MCV MCH MCHC RDW Plt Count 133 L 133 L Lymph % (Auto) [place] % (Auto) Eos % (Auto) Baso % (Auto) Lymph # (Auto) [place] # (Auto) Eos # (Auto) Baso # (Auto) Seg Neutrophils # PT INR ABG pH 7.178 L* ABG pCO2 24.3 ABG pO2 385.5 H ABG HCO3 8.8 L ABG O2 Saturation 99.5 H ABG O2 Content 18.2 ABG Base Excess -17.9 L ABG Hemoglobin 12.5 ABG Carboxyhemoglobin 1.1 ABG Methemoglobin 0.3 Oxyhemoglobin 98.2 FiO2 100 Sodium Potassium Chloride Carbon Dioxide Anion Gap BUN Creatinine Estimated GFR BUN/Creatinine Ratio Glucose Lactic Acid Calcium Magnesium Total Bilirubin AST ALT Alkaline Phosphatase Total Creatine Kinase CK-MB (CK-2) CK-MB (CK-2) Rel Index Troponin T Total Protein Albumin Albumin/Globulin Ratio Triglycerides Cholesterol LDL Cholesterol Direct HDL Cholesterol Cholesterol/HDL Ratio Lipase TSH Blood Type Antibody Screen 05/07/22 05/07/22 11:53 11:53 WBC RBC Hgb Hct MCV MCH MCHC RDW Plt Count Lymph % (Auto) [place] % (Auto) Eos % (Auto) Baso % (Auto) Lymph # (Auto) [place] # (Auto) Eos # (Auto) Baso # (Auto) Seg Neutrophils # PT INR ABG pH ABG pCO2 ABG pO2 ABG HCO3 ABG O2 Saturation ABG O2 Content ABG Base Excess ABG Hemoglobin ABG Carboxyhemoglobin ABG Methemoglobin Oxyhemoglobin FiO2 Sodium Potassium Chloride Carbon Dioxide Anion Gap BUN Creatinine Estimated GFR BUN/Creatinine Ratio Glucose Lactic Acid Calcium Magnesium Total Bilirubin AST ALT Alkaline Phosphatase Total Creatine Kinase 66 CK-MB (CK-2) 3.0 CK-MB (CK-2) Rel Index 4.5 H Troponin T 0.064 H Total Protein Albumin Albumin/Globulin Ratio Triglycerides 144 Cholesterol 81 LDL Cholesterol Direct 22 L HDL Cholesterol 20 L Cholesterol/HDL Ratio 4.05 Lipase TSH 3.800 Blood Type Antibody Screen - Imaging X-ray: report reviewed Assessment and Plan # GI bleed # Abdominal pain # Abdominal distension. - recent admission with EGD on 05/02/2022 showing diffuse gastritis but no active bleeding. - abdominal xray this admission showed Similar findings suggestive of constipation with increased small bowel dilatation, favored to represent an evolving ileus. - currently on low dose of levophed. - PEG tube suctioned output with 1 L of bloody output. - possible upper GI bleed vs SBO. - Hgb with slight drop to 13 from 14. - unclear if GI bleeding is the main reason for her clinical deterioration including acidosis and shock given Hgb at 13. - patient not medically optimized for EGD at this time. Rec - cont with PPI drip - recommend NG tube insertion and to LIS - PEG tube to gravity - keep NPO - monitor H/H and transfuse as needed. - recommend CTA a/p when stable. - will plan for EGD once more medically stable. - recommend surgery consult. - discussed with ICU team - guarded prognosis. - Patient Problems (1) GI bleed Current Visit: Yes Status: Acute
--- NOTE | 2022-05-07 16:55 | Consultation ---
History of Present Illness Consult date: 05/07/22 Reason for consult: abdominal pain - History of present illness History of present illness: GS called to see 71 year old female readmitted through the ED after recent 5 day admission for GI bleed. [facility] a hx of coffee ground emesis. She was admitted to ICU with tachycardia and hypotensi on and started on levo. She had 1 liter coffee ground drainage from peg tube, and ngt was inserted since she was have some vomiting despite peg to gravity. She had an abdominal x-ray that showed dilated small bowel loops through out and stool in the colon consistent with possible ileus. GI had evaluated that pt on last admission and performed EGD that showed significant gastritis with friable mucosa and no actively bleeding lesions. Pt deemed to unstable to get CTA of the abdomen pelvis or sedated for endoscopy. Of note patient has a history of A. fib (unsure of timing of her last dose of E liquis )and recent open heart surgery in the last 2 months. Patient unable to give adequate history due to altered mental status. Past History Past Medical History: acute [place], atrial fib, arthritis Past Surgical History: CABG, Other (PEG tube placement, knee surgery, trach) Social history: no significant social history Family history: no significant family history Medications and Allergies Allergies Allergy/AdvReac Type Severity Reaction Status Date / Time No Known Allergies Allergy Unverified 05/02/22 10:27 Home Medications Medication Instructions Recorded Confirmed Last Taken Type Acetaminophen [Tylenol Extra 1,000 mg PO TID 05/03/22 05/03/22 Unknown History Strength] Acetaminophen [Tylenol] 1,000 mg PO Q8HR 05/03/22 05/03/22 Unknown History Apixaban [Eliquis] 5 mg PO BID 05/03/22 05/03/22 Unknown History Aspirin [Vazalore] 81 mg PO DAILY 05/03/22 05/03/22 Unknown History AtorvaSTATin [Lipitor] 40 mg PO QHS 05/03/22 05/03/22 Unknown History Calcium Carbonate/Vitamin D3 1 tab PO QID 05/03/22 05/03/22 Unknown History [Calcium 500 mg Chewable Tablet] Diclofenac 1% [Diclofenac 1% 100 gm TP BID 05/03/22 05/03/22 Unknown History topical gel] Furosemide [Lasix] 40 mg PO Q48HR 05/03/22 05/03/22 Unknown History Lidocaine [Lidocaine Cream] 5 gm TP DAILY 05/03/22 05/03/22 Unknown History Metoclopramide HCl [Reglan TAB] 5 mg PO BID 05/03/22 05/03/22 Unknown History Multivit-Min/Iron Fum/Folic AC 1 each PO DAILY 05/03/22 05/04/22 Unknown History [Kndbi-Ygawazv-Ufvjsjez Tablet] Nitro-Bid 0.5 inch .ROUTE 6XD 05/03/22 05/03/22 Unknown History Pantoprazole [Protonix TAB] 40 mg PO DAILY 05/03/22 05/03/22 Unknown History guaiFENesin ER [Mucinex ER] 1,200 mg PO BID 05/03/22 05/03/22 Unknown History Active Meds: Active Medications Acetaminophen (Acetaminophen 325 Mg Tab) 650 mg PO Q6H PRN PRN Reason: Pain MILD(1-3)/Fever >100.5/RAMIREZ Bisacodyl (Bisacodyl 10 Mg Rect Supp) 10 mg GA QDAY RENE Stop: 05/08/22 15:59 Last Admin: 05/07/22 16:13 Dose: 10 mg dilTIAZem/NaCl (Diltiazem/Nacl 125mg/125ml) 125 mg in 125 mls @ 5 mls/hr IV TITRATE RENE; Protocol Last Titration: 05/07/22 10:08 Dose: Infused NORepinephrine/NS 8 MG-250 ML (Norepinephrine/Ns 8 Mg-250 Ml (Double Conc)) 8 mg in 250 mls @ 15.188 mls/hr IV TITRATE RENE; Protocol Last Titration: 05/07/22 16:13 Dose: 0.16 mcg/kg/min, 24.3 mls/hr Octreotide Acetate 500 mcg/ (Sodium Chloride) 101 mls @ 5.05 mls/hr IV TITR RENE; Protocol Last Admin: 05/07/22 14:05 Dose: 25 mcg/hr, 5.05 mls/hr Pantoprazole Sodium 80 mg/ (Sodium Chloride) 100 mls @ 10 mls/hr IV DIRECT RENE Last Admin: 05/07/22 14:05 Dose: 8 mg/hr, 10 mls/hr Sodium Bicarbonate 150 meq/ (Dextrose) 1,150 mls @ 75 mls/hr IV DIRECT RENE Stop: 05/09/22 04:19 Last Admin: 05/07/22 14:44 Dose: 75 mls/hr Magnesium Hydroxide (Magnesium Hydroxide (Mom) Oral Liqd Udc) 30 ml PO Q4H PRN PRN Reason: Constipation Morphine Sulfate (Morphine 2 Mg/1 Ml Inj) 2 mg IV Q4H PRN PRN Reason: Pain, Moderate (4-6) Ondansetron HCl (Ondansetron 4 Mg/2 Ml Inj) 4 mg IV Q8H PRN PRN Reason: Nausea And Vomiting Last Admin: 05/07/22 10:11 Dose: 4 mg Sodium Chloride (Sodium Chloride 0.9% 10 Ml Flush Syringe) 10 ml IV BID RENE Last Admin: 05/07/22 09:40 Dose: 10 ml Sodium Chloride (Sodium Chloride 0.9% 10 Ml Flush Syringe) 10 ml IV PRN PRN PRN Reason: LINE FLUSH Review of Systems ROS unobtainable: due to mental status Exam Vital Signs Pulse Resp Pulse Ox 127 H 21 98 05/06/22 22:13 05/06/22 22:13 05/06/22 22:13 - General physical appearance Positive: no distress, no pain, cathetic, chronically ill - ENT Positive: poor shelter - Respiratory Positive: normal respiratory effort, other (no O2 non-rebreather mask) - Cardiovascular Heart Sounds: Present: S1 & S2 - Extremities Extremity abnormal: edema - Abdomen Abdomen: Present: soft, distended, other (PEG tube with dark gastric contents. same in NGT). Absent: guarding, rigid - Neurologic Neurologic: no alert and oriented to time, place and person Results - Labs 05/07/22 11:53 05/06/22 23:14 Abnormal lab results 05/06/22 05/06/22 05/06/22 Range/Units 23:14 23:14 23:14 Hgb 14.8 H (10.1-14.3) gm/dl Hct 45.7 H (30.3-42.9) % RDW 16.6 H (13.2-15.2) % Plt Count 139 L (140-440) K/mm3 PT 25.6 H (12.2-14.9) Sec. INR 1.98 H (0.87-1.13) ABG pH (7.350-7.450) pH Units ABG pO2 (80.0-90.0) mm Hg ABG HCO3 (20.0-26.0) mmol/L ABG O2 Saturation (95.0-99.0) % ABG Base Excess (-2.0-3.0) mmol/L Sodium 135 L (137-145) mmol/L Carbon Dioxide 15 L (22-30) mmol/L BUN 74 H (7-17) mg/dL Glucose 115 H (65-100) mg/dL Lactic Acid (0.7-2.0) mmol/L Calcium 7.7 L (8.4-10.2) mg/dL Magnesium 2.40 H (1.7-2.3) mg/dL Alkaline Phosphatase 164 H (35-129) units/L CK-MB (CK-2) Rel Index (0-4) Troponin T (0.00-0.029) ng/mL Total Protein 5.1 L (6.3-8.2) g/dL Albumin 2.7 L (3.9-5) g/dL LDL Cholesterol Direct (50-130) mg/dL HDL Cholesterol (40-59) mg/dL 05/06/22 05/07/22 05/07/22 Range/Units 23:14 07:58 11:50 Hgb (10.1-14.3) gm/dl Hct (30.3-42.9) % RDW (13.2-15.2) % Plt Count 133 L (140-440) K/mm3 PT (12.2-14.9) Sec. INR (0.87-1.13) ABG pH 7.178 L* (7.350-7.450) pH Units ABG pO2 385.5 H (80.0-90.0) mm Hg ABG HCO3 8.8 L (20.0-26.0) mmol/L ABG O2 Saturation 99.5 H (95.0-99.0) % ABG Base Excess -17.9 L (-2.0-3.0) mmol/L Sodium (137-145) mmol/L Carbon Dioxide (22-30) mmol/L BUN (7-17) mg/dL Glucose (65-100) mg/dL Lactic Acid 2.30 H* (0.7-2.0) mmol/L Calcium (8.4-10.2) mg/dL Magnesium (1.7-2.3) mg/dL Alkaline Phosphatase (35-129) units/L CK-MB (CK-2) Rel Index (0-4) Troponin T (0.00-0.029) ng/mL Total Protein (6.3-8.2) g/dL Albumin (3.9-5) g/dL LDL Cholesterol Direct (50-130) mg/dL HDL Cholesterol (40-59) mg/dL 05/07/22 05/07/22 Range/Units 11:53 11:53 Hgb (10.1-14.3) gm/dl Hct (30.3-42.9) % RDW (13.2-15.2) % Plt Count 133 L (140-440) K/mm3 PT (12.2-14.9) Sec. INR (0.87-1.13) ABG pH (7.350-7.450) pH Units ABG pO2 (80.0-90.0) mm Hg ABG HCO3 (20.0-26.0) mmol/L ABG O2 Saturation (95.0-99.0) % ABG Base Excess (-2.0-3.0) mmol/L Sodium (137-145) mmol/L Carbon Dioxide (22-30) mmol/L BUN (7-17) mg/dL Glucose (65-100) mg/dL Lactic Acid (0.7-2.0) mmol/L Calcium (8.4-10.2) mg/dL Magnesium (1.7-2.3) mg/dL Alkaline Phosphatase (35-129) units/L CK-MB (CK-2) Rel Index 4.5 H (0-4) Troponin T 0.064 H (0.00-0.029) ng/mL Total Protein (6.3-8.2) g/dL Albumin (3.9-5) g/dL LDL Cholesterol Direct 22 L (50-130) mg/dL HDL Cholesterol 20 L (40-59) mg/dL Diabetes panel 05/06/22 05/07/22 Range/Units 23:14 11:53 Sodium 135 L (137-145) mmol/L Potassium 3.9 (3.6-5.0) mmol/L Chloride 101.3 (98-107) mmol/L Carbon Dioxide 15 L (22-30) mmol/L BUN 74 H (7-17) mg/dL Creatinine 1.2 (0.6-1.2) mg/dL Glucose 115 H (65-100) mg/dL Calcium 7.7 L (8.4-10.2) mg/dL AST 32 (5-40) units/L ALT 8 (7-56) units/L Alkaline Phosphatase 164 H (35-129) units/L Total Protein 5.1 L (6.3-8.2) g/dL Albumin 2.7 L (3.9-5) g/dL Triglycerides 144 (2-149) mg/dL HDL Cholesterol 20 L (40-59) mg/dL Thyroid panel 05/07/22 Range/Units 11:53 TSH 3.800 (0.270-4.200) mlU/mL Calcium panel 05/06/22 Range/Units 23:14 Calcium 7.7 L (8.4-10.2) mg/dL Albumin 2.7 L (3.9-5) g/dL Pituitary panel 05/06/22 05/07/22 Range/Units 23:14 11:53 Sodium 135 L (137-145) mmol/L Potassium 3.9 (3.6-5.0) mmol/L Chloride 101.3 (98-107) mmol/L Carbon Dioxide 15 L (22-30) mmol/L BUN 74 H (7-17) mg/dL Creatinine 1.2 (0.6-1.2) mg/dL Glucose 115 H (65-100) mg/dL Calcium 7.7 L (8.4-10.2) mg/dL TSH 3.800 (0.270-4.200) mlU/mL Adrenal panel 05/06/22 Range/Units 23:14 Sodium 135 L (137-145) mmol/L Potassium 3.9 (3.6-5.0) mmol/L Chloride 101.3 (98-107) mmol/L Carbon Dioxide 15 L (22-30) mmol/L BUN 74 H (7-17) mg/dL Creatinine 1.2 (0.6-1.2) mg/dL Glucose 115 H (65-100) mg/dL Calcium 7.7 L (8.4-10.2) mg/dL Total Bilirubin 0.70 (0.1-1.2) mg/dL AST 32 (5-40) units/L ALT 8 (7-56) units/L Alkaline Phosphatase 164 H (35-129) units/L Total Protein 5.1 L (6.3-8.2) g/dL Albumin 2.7 L (3.9-5) g/dL - Imaging Abdominal x-ray: report reviewed, image reviewed Assessment and Plan 71-year-old female with GI bleeding and possible small bowel obstruction versus ileus. Patient is afebrile with blood pressure support with Levophed, and tachycardia control with Cardizem. No significant drop in H&H on this admission. No acute surgical intervention planned at this time. Recommend: 1. Continue supportive care and resuscitation 2. Trend serial H&H - transfuse as needed 3. Continue Protonix drip and Sandostatin 4. If stabilizes and continues to show signs of bleeding recommend repeat end oscopy to identify/ stop bleed and or angiography to both identify and stop bleeding. 5. Patient is a very high risk surgical candidate due to overall poor condition and recent cardiac bypass surgery. Surgical intervention will only be considered as a last resort if patient has continued uncontrolled bleeding and other methods of management have been exhausted.
--- NOTE | 2022-05-07 17:07 | XRay Report ---
ABDOMEN 1 VIEW 05/07/2022 2:56 PM INDICATION / CLINICAL INFORMATION: NG tube placement. COMPARISON: Earlier today. FINDINGS: TUBES / LINES: NG tube tip and sidehole project over the mid upper abdomen. BOWEL GAS PATTERN: Similar pathologic small bowel dilation which may indicate ileus and/or obstructio n. FREE AIR / EXTRALUMINAL GAS: None. ADDITIONAL FINDINGS: No significant additional findings. IMPRESSION: 1. NG tube projects satisfactorily. Signer Name: Ten Pham MD Signed: 05/07/2022 5:03 PM Workstation Name: [email or web address]
[2022-05-07 18:07] LABS: Hematocrit 42.7 % (30.3-42.9); Hemoglobin 13.3 gm/dl (10.1-14.3)
[2022-05-07] MEDS ORDERED: SODIUM CHLORIDE 0.9% 250ML 250 ML IV ONE (18:22)
[2022-05-07 22:14] LABS: ABG Base Excess -21.9 mmol/L (-2.0-3.0); ABG HCO3 8.8 mmol/L (20.0-26.0); ABG Oxygen Saturation 99.5 % (95.0-99.0); ABG PCO2 37.6 mm Hg
[2022-05-07 22:17] LABS: ABG PO2 329.9 mm Hg (80.0-90.0)
[2022-05-07 22:19] LABS: ABG PH 6.988 pH Units (7.350-7.450)
[2022-05-07] MEDS ORDERED: SODIUM BICARB 8.4% 50 MEQ/50 ML SYRINGE IV ONE ×2 (22:27→22:52)
--- NOTE | 2022-05-07 22:43 | Event Note ---
Date: 05/07/22 called about decompensation with BIPAP requirements in the setting of worsening mental status and baseline intermittent N&V over the past 48+ hours repeat ABG also documents worsening acidosis despite bicarbonate drip - 2 AMPS NaHCO3 IV X 1 - intubate - hyperventilate acutely for respiratory compensation (PRVC/AC 450mls rate of 30 and peep of 6) - Vasopressin drip - Versed in 2mg IV aliquots for intubation (max 5 mg) - RN to call in-house physician micthell-intubation - RN to inform family of intubation ... re-evaluate in am & prn
[2022-05-07] MEDS ORDERED: LIP THERAPY VASELINE TP PRN (22:44)
[2022-05-07] MEDS ORDERED: MINERAL OIL/PETROLATUM, WHITE OPHTH OINT 3.5 GM OU PRN (22:44)
[2022-05-07] MEDS ORDERED: MIDAZOLAM 5 MG/5 ML INJ MDV IV PRN (22:44)
[2022-05-07] MEDS ORDERED: fentaNYL DRIP Premix 1,000 MCG/100 ML BAG IV SCH (23:00)
[2022-05-07] MEDS ORDERED: VASOPRESSIN 20 UNIT in SODIUM CHLORIDE 0.9% 100 ML IV SCH (23:00)
--- NOTE | 2022-05-08 00:23 | XRay Report ---
CHEST 1 VIEW 05/07/2022 11:47 PM INDICATION / CLINICAL INFORMATION: ETT placement. COMPARISON: 05/07/2022 FINDINGS: SUPPORT DEVICES: Expected position of the endotracheal tube, nasogastric tube and right IJ CVL. HEART / MEDIASTINUM: Stable. LUNGS / PLEURA: Improved bibasilar atelectasis. Otherwise stable. No pneumothorax. ADDITIONAL FINDINGS: Prior median sternotomy. IMPRESSION: 1. Expected position of the endotracheal tube, nasogastric tube and right IJ CVL. 2. Improved bibasilar atelectasis. Signer Name: Padilla Meza MD Signed: 05/08/2022 12:19 AM Workstation Name: [email or web address]
[2022-05-08] MEDS: NORepinephrine/NS 8 MG-250 ML 8 MG/250 ML INFUS..BTL IV SCH ×2 (00:29→02:14)
[2022-05-08 00:39] LABS: ABG Base Excess -20.6 mmol/L (-2.0-3.0); ABG HCO3 8.1 mmol/L (20.0-26.0); ABG Oxygen Saturation 98.1 % (95.0-99.0); ABG PCO2 28.3 mm Hg; ABG PO2 141.4 mm Hg (80.0-90.0)
[2022-05-08 00:43] LABS: ABG PH 7.075 pH Units (7.350-7.450)
[2022-05-08] MEDS ORDERED: PHENYLEPHRINE 100 MG in SODIUM CHLORIDE 0.9% 250ML 240 ML IV SCH (01:45)
[2022-05-08] MEDS ORDERED: EPINEPHRINE IV SCH (02:00)
[2022-05-08] MEDS ORDERED: SODIUM CHLORIDE 0.9% IV SCH (02:00)
--- NOTE | 2022-05-08 02:03 | Consultation ---
DATE OF CONSULTATION: 05/07/2022 PULMONARY CRITICAL CARE CONSULTATION NOTE REASON FOR CONSULTATION: Atrial fibrillation with a rapid ventricular response, shock cardiogenic versus hypovolemic, and acute gastrointestinal bleed. CHIEF COMPLAINT AND HISTORY OF PRESENT ILLNESS: The patient is a now 71-year-old female with a past medical history significant amongst other things for a diagnosis of coronary artery disease and who apparently is status post recent coronary artery bypass grafting. She [facility] yesterday complaining of nausea, vomiting and palpitations. She had just been discharged from this hospital after management of the GI bleed. An EGD at that time revealed diffuse gastritis. She mentioned when she came into the Emergency Room that she had been vomiting blood earlier the day of presentation as she has been having palpitations. She denied chest pains. In the Emergency Room, she was indeed found to be in atrial fibrillation with rapid ventricular response and was started on a Cardizem drip. Her hemoglobin level was 14.8. She had a slightly elevated lactic acid level of 2.3, BUN of 74 and creatinine of 1.2. The patient was started on a Protonix drip, the Cardizem drip and transferred to the intensive care unit. In the intensive care unit, she was found to be complaining of nausea, abdominal pain. The percutaneous endoscopic gastrostomy tube was connected to suction and they got over 1/2 a liter of what looked like coffee-ground emesis out of the PEG. She became hypotensive as mentioned and is now on a Levophed drip to keep her mean arterial pressures greater than 65 mmHg. She is responsive. She complains of some pain around the periumbilical/lower bilateral regions. She denies any nausea at this point in time, is feeling a little bit better, still denies chest pain. With regards to tobacco use/abuse history, she is not a current smoker, remote history is unknown. She gives as much of the history of presentation as I have. PAST MEDICAL HISTORY: Again, coronary artery disease, history of arthritis. She is obese. The history of the recent GI bleed. PAST SURGICAL HISTORY: Status post coronary artery bypass grafting, I believe, within the past year. MEDICATIONS: She was on at the time I stopped by to see her included the following: Tylenol 650 mg p.o. q. 6 hours p.r.n. mild pain or fevers, diltiazem drip had been going at 5 mg per hour, that is stopped now. Morphine sulfate 2 mg IV q. 4 hours p.r.n. moderate pain, Levophed drip is going at 0.1 mcg per kilogram per minute. She is on an octreotide drip, now at 25 mcg per hour, Zofran 4 mg IV q. 8 hours p.r.n. nausea and vomiting, and Protonix drip is going at 8 mg per hour. ALLERGIES: No known drug allergies. DIET: Obese lady, denies acute weight loss or gain in the preceding few weeks to months. SOCIAL HISTORY: correction resident. No current alcohol, tobacco or illicit drug use or abuse. Remote history is unknown. FAMILY HISTORY: Otherwise unknown. REVIEW OF SYSTEMS: Difficult to obtain secondary to the patient's medical and mental condition. She denies gross hematochezia or melena as far as she can tell. Denies gross hematuria. Denies dysuria. She complains of thirst and oropharyngeal dryness. She denies any new-onset focal weakness. Denies any new-onset seizures. Denies polydipsia, polyuria. Denied heat or cold intolerance. No new rashes or lumps on her body. Complete 13-system review of system was obtained as best as I could. Pertinent positives and/or negatives as in body of history above, otherwise they are noncontributory. PHYSICAL EXAMINATION: VITAL SIGNS: At presentation, she was afebrile, slightly hypothermic, temperature 96.2 degrees Fahrenheit, pulse was 127, respiratory rate was 21, blood pressure was 155/102, O2 sats were 98%, inspired oxygen concentration at that time was not recorded. Most recent temperature was 95.3. She is 100% on a 100% nonrebreather at this point. GENERAL: Again, elderly looking female. Normocephalic, atraumatic. Talking with me with mildly increased respiratory effort at rest. HEAD, EYES, EARS, NOSE AND THROAT: Anicteric. No conjunctival erythema. Oropharynx was dry. NECK: No gross jugular venous distention, no thyromegaly. Grossly, there were no palpable lymph nodes in the supraclavicular or submandibular lymph node chains. Right IJ central catheter is in place. No significant bleed. No exudation around the stoma. LUNGS: Auscultation of both lung angel revealed diminished bilateral breath sounds. Faint inspiratory crackles in the bases. No active wheezing. HEART: Sounds 1 and 2 are heard at the time of my evaluation. Irregular in rate and rhythm without overt rubs or murmurs. ABDOMEN: Soft, full, protuberant. Bowel sounds are positive. Mild tenderness in the mitchell/infraumbilical area. Percutaneous endoscopic gastrostomy tube is in place. No tiffanie blood around the stoma. Coffee-ground emesis type effluent is noted coming from the PEG tube. EXTREMITIES: Without overt digital clubbing or cyanosis, no pedal edema. Pedal pulses are weak, but palpable. NEUROLOGIC: Pupils are equal, round, about 3 mm, reactive to light. Extraocular muscle movements are intact. She moves all 4 extremities spontaneously. She is a little bit somnolent to lethargic, but still has intact judgment and insight. SKIN: Normal turgor in the areas I examined without overt cellulitis or rash. Both her feet, legs were cool to the touch. No pedal edema there. Please see the wound care nurses' notes for full description of her skin. PSYCHIATRIC: Her mood and affect was somewhat flat, but she did have intact judgment and insight. LABORATORY DATA: From my review are as follows: White cell count at admission 10,300, hemoglobin 14.8, hematocrit 45.7, platelet count 139. INR was 1.98 at presentation. Arterial blood gas shows a pH of 7.18, pCO2 of 24, pO2 of 390, that is on 100% nonrebreather. Serum sodium was 135, potassium 3.9, chloride 101, bicarbonate 15, this was yesterday. BUN was 74, creatinine 1.2, glucose 115. Lactic acid level was 2.3, now within normal limits. Total bilirubin within normal limits. Liver function tests otherwise within normal limits except albumin is low at 2.7. A 12-lead EKG suggest an acute IN; however, there is a lot of artifact. I have shared the EKG with the transportation director and considering the demand ischemia she is probably dealing with her at this time and after his evaluation, he does not recommend any acute intervention. No microbiology studies. Chest x-ray was done at presentation, I have reviewed it, no acute process. Median sternotomy wires are in place. There is gross cardiomegaly. There is some enlargement of the right main pulmonary trunk consistent with an element of pulmonary hypertension. Most recent chest x-ray shows a right IJ central venous catheter with the tip in the distal SVC/right atrial junction and no pneumothorax. A CT of the abdomen was done on the that showed constipation, possible stercoral colitis. No evidence of an acute bleed. A 2D echocardiogram has just been done, the result is pending. ASSESSMENT: * Acute hypoxemic respiratory failure. * Atrial fibrillation with rapid ventricular response, probably related to 3. * Acute gastrointestinal bleed. * Hypotension, hypovolemic versus cardiogenic. * History of coronary artery disease status post coronary artery bypass graft. * History of arthritis. * Obesity. * Coagulopathy, possibly iatrogenic. * Hypoalbuminemia. * Lactic acidosis, resolved. * Acute kidney injury. * Metabolic acidosis. PLAN: No acute indication for emergent intubation. She is going to be weaned to about 50% FiO2 and wean further from that. Her work of breathing is a little bit on the high side, but she is breathing less than 30 times a minute, able to talk to me without significantly interrupted sentences. I will start her on a bicarbonate drip to replace the serum bicarbonate and hopefully reduce her work of breathing by reducing the compensatory drive for the acidosis. It is unclear what her ejection fraction is, but right now I think there is also an element of hypovolemia that may be also following the atrial fibrillation, rapid ventricular response. I will give her 3 amps of bicarbonate per liter of D5W, run it at 75 mL per hour for 2 liters. Levophed drip is in place. It will be weaned to keep mean arterial pressures greater than or equal to about 90%. Aspiration precautions will be maintained. Glycemic control will be for target blood glucose of about 140-180 mg/dL while critically ill. She will be n.p.o. until evaluated by GI physician, n.p.o. except for ice chips. We will continue the Protonix drip. It seems like the atrial fibrillation, if needs treatment, may not be amenable to anticoagulation in light of her recurrent GI bleeds. I will also continue the octreotide. Again GI consultation will be placed. A Cardiology evaluation has also been requested. Flu and pneumonia vaccination will be addressed per protocol. Thank you very much for the consult. We will follow along and make further recommendations as picture progresses/becomes clearer. She is critically ill on life-sustaining interventions including the supplemental oxygen and Levophed drip, at very high risk of from cardiopulmonary system decompensation. At this time, I spent about 35-40 minutes of critical care time without overlap and excluding any procedural time that may be necessary. TID: [id number] RECEIPT: [id number] GENE/MONICA
[2022-05-08] MEDS ORDERED: DEXTROSE 50% IN WATER (25GM) 50 ML SYRINGE IV ONE (02:44)
[2022-05-08 04:50] VITALS: BP 123/16
--- NOTE | 2022-05-08 07:17 | Event Note ---
Date: 05/08/22 's KARLY DOBBS called on 71-year-old female who had been admitted for upper GI bleed, A. fib with RVR. She had been intubated earlier and had been on 3 pressors. Resuscitative measures were commenced according to ACLS protocol. Patient had multiple rounds of epinephrine, sodium bicarb, and glucose. All resuscitative measures proved futile. Patient was pronounced at 3:05 AM on May 08, 2022. Family to be promptly informed.
--- NOTE | 2022-05-08 07:38 | Death Summary ---
<MALU CANAS - Last Filed: 05/08/22 20:37> Summary - Providers Date of service: 05/08/22 Consults: 05/07/22 05:46 Consult to Dietitian/Nutrition [CONS] Routine Physician Instructions: Reason For Exam: Reason for Consult: Diet education Consult to Physician [CONS] Routine Comment: Consulting Provider: FLIP INGRAM Physician Instructions: Reason For Exam: Upper GI Bleed 05/07/22 05:49 Consult to Cardiology [CONS] Routine Consulting Provider: TANYA YOU Reason For Exam: Afib with RVR 05/07/22 07:09 Consult to Physician [CONS] Routine Comment: Consulting Provider: JIMMY CLEMENTS Physician Instructions: Reason For Exam: Afib with RVR 05/07/22 15:24 Consult to Physician [CONS] Routine Comment: Consulting Provider: TOBIAS PNA Physician Instructions: Reason For Exam: question of SBO 05/07/22 22:44 Consult to Dietitian/Nutrition [CONS] Routine Physician Instructions: Reason For Exam: Reason for Consult: Write/Manage Tube Feeding Attending: TIEN LIRIANO MD - summary Date of admission: 05/07/22 05:46 Date of : 05/08/22 Reason for admission: Acute Blood Loss, Upper GI Bleed Disposition: This is a 71-year old female from a SNF with known past medical history of MO, CAD s/p CABG x2 on 03/01/2022, tobacco abuse, and dysphagia s/p PEG-tube placement who presented in the emergency room today for evaluation of nausea, vomiting and palpitations. Patient was just recently discharged from this hospital during which she had a GI bleed and had EGD which revealed diffuse gastritis. Patient states she has just been vomiting blood blood earlier today and has been having palpitations. She denies any chest pain. Upon arrival in the emergency room patient was in A. fib with RVR. She was subsequently started on a Cardizem drip. Work-up in the emergency room today, lab is significant for hemoglobin of 14.8 and hematocrit of 45.7, lactic acid of 2.3, BUN of 74 and creatinine was 1.2. Patient was admitted to the ICU for GI bleed and new onset atrial fibrillation with rapid ventricular response, Protonix and Cardizem drips were initiated. Critical Care Management, GI, and Cardiology were consulted. While in the ICU, patient went into respiratory distress with increase WOB and tachypnea requiring NRB. Drowsy but arousable, following simple commands. Patient continujed to vomit dark blood with abdominal distention, PEG-tube placed on LIS over 1L of dark maroon output. a KUB was performed which revealed constipation and possible evolving ileus. Patient was kept NPO, NGT was inserted for decompression, X1 dose of suppository administered, and octreotide gtt was added. Patient's H&H remains stable, howerver, patient condition continued to decompensated. Patient became hypotensive and was found with metabolic acidosis requiring vasopressor and a sodium bcarb drip. Patient remained in Atrial fibrillation, but control rate. Cardizem drip held due to hypotension. GI recommended a CTA abd/pelvis however, patient was too unstable for transportation at the time. General Surgery was also consulted for possible ileus. Overnight on 05/07, patient decompensated and was emergently intubated for worsen mental status and respiratory failure. Patient condition continued to worsen throughout the night requiring three pressors and a sodium bcab gtt. In the managing consultant clinical professor on 05/08/2022 a code josr was called. Patient was found in asystole arrest, resuscitative measures were initiated according to ACLS protocol. Patient had multiple rounds of epinephrine, sodium bicarb, and glucose. All resuscitative measures proved futile. Patient was pronounced at 3:05 AM on May 08, 2022. Family was informed via phone and bereavement arrangements to be made by the nursing staffs. #Hypovolemic Shock #Acute Blood Loss #Upper GI bleed #Hematemesis #Abdominal Distention #Previous GIB s/p EGD #New Onset Atrial Fibrillation with RVR #H/o MO & CAD s/p CABG x2 on 03/01/2022 #Acute Hypoxic Respiratory Failure #Dysphasia s/p PEG-Tube placement <TIEN LIRIANO - Last Filed: 05/10/22 07:17> Summary - Providers Consults: 05/07/22 05:46 Consult to Dietitian/Nutrition [CONS] Routine Physician Instructions: Reason For Exam: Reason for Consult: Diet education Consult to Physician [CONS] Routine Comment: Consulting Provider: FLIP INGRAM Physician Instructions: Reason For Exam: Upper GI Bleed 05/07/22 05:49 Consult to Cardiology [CONS] Routine Consulting Provider: TANYA YOU Reason For Exam: Afib with RVR 05/07/22 07:09 Consult to Physician [CONS] Routine Comment: Consulting Provider: JIMMY CLEMENTS Physician Instructions: Reason For Exam: Afib with RVR 05/07/22 15:24 Consult to Physician [CONS] Routine Comment: Consulting Provider: TOBIAS PAN Physician Instructions: Reason For Exam: question of SBO 05/07/22 22:44 Consult to Dietitian/Nutrition [CONS] Routine Physician Instructions: Reason For Exam: Reason for Consult: Write/Manage Tube Feeding Attending: TIEN LIRIANO MD - summary Date of admission: 05/07/22 05:46
--- NOTE | 2022-05-08 09:45 | Electrocardiograph Report ---
[facility] Test Date: 2022-05-07 Test Time: 11:50:22 Pat Name: AUNDREA HATHAWAY Department: Room: A257 1 Gender: F Contractor General Building: [place] : 1950 Requested By: DIMITRY XIE Order Number: [id number] Reading MD: Nancy Segovia Measurements Intervals Rudolph Rate: 79 P: 63 NH: 205 QRS: -31 QRSD: 105 T: 106 QT: 444 QTc: 510 Interpretive Statements SINUS RHYTHM QS complexes and ST elevation consistent with inferior STEMI, undetermined age may be acute Compared to ECG 05/02/2022 09:52:01 Sinus rhythm has replaced atrial tachycardia Electronically Signed On 05-08-2022 9:45:31 EDT by Nancy Segovia
[2022-05-08] MEDS ORDERED: SENNOSIDES/DOCUSATE SODIUM 8.6/50 MG TAB FEEDTUBE SCH (10:00)
--- NOTE | 2022-05-08 11:56 | Electrocardiograph Report ---
[facility] Test Date: 2022-05-06 Test Time: 22:20:29 Pat Name: AUNDREA HATHAWAY Department: Room: A257 1 Gender: F Army Officer: JORGE : 1950 Requested By: TANYA YOU Order Number: [id number] Reading MD: Cliff Caldera Measurements Intervals Tye Rate: 148 P: LA: QRS: -26 QRSD: 90 T: 90 QT: 319 QTc: 502 Interpretive Statements Atrial fibrillation with rapid V-rate ST elevation secondary to high heart rate Compared to ECG 05/02/2022 09:52:01 ST (T wave) deviation now present Myocardial infarct finding no longer present poor r wave progression Electronically Signed On 05-08-2022 8:55:59 PDT by Cliff Caldera
--- NOTE | 2022-05-08 12:41 | Electrocardiograph Report ---
[facility] Test Date: 2022-05-07 Test Time: 04:22:57 Pat Name: AUNDREA HATHAWAY Department: Room: A257 1 Gender: F Production Line Mechanic: JORGE : 1950 Requested By: MARINA HARDEN Order Number: [id number] Reading MD: Cliff Caldera Measurements Intervals Deary Rate: 170 P: MA: QRS: 61 QRSD: 104 T: 98 QT: 313 QTc: 528 Interpretive Statements Atrial fibrillation with rapid V-rate ST elevation secondary to high heart rate Compared to ECG 05/06/2022 22:20:29 No significant changes Electronically Signed On 05-08-2022 9:41:07 PDT by Cliff Caldera
== END 2022-05-08 06:00 | DRG 208 ==
LOC: ED 22:06 → CC1 05-07 05:46
PROVIDERS: ADMIT Internal Medicine Geriatric Medicine; ATTEND Internal Medicine
PROC: 5A1935Z Respiratory Ventilation, Less than 24 Consecutive Hours (ICD-10-PCS; principal; 2022-05-07)
PROC: 0BH17EZ Insertion of Endotracheal Airway into Trachea, Via Natural or Artificial Opening (ICD-10-PCS; 2022-05-07)
PROC: 5A09357 Assistance with Respiratory Ventilation, Less than 24 Consecutive Hours, Continuous Positive Airway Pressure (ICD-10-PCS; 2022-05-07)
PROC: 4A033R1 Measurement of Arterial Saturation, Peripheral, Percutaneous Approach (ICD-10-PCS; 2022-05-07)
PROC: 05HM33Z Insertion of Infusion Device into Right Internal Jugular Vein, Percutaneous Approach (ICD-10-PCS; 2022-05-07)
PROC: B543ZZA Ultrasonography of Right Jugular Veins, Guidance (ICD-10-PCS; 2022-05-07)
DX: J96.01 Acute respiratory failure with hypoxia (principal); K29.71 Gastritis, unspecified, with bleeding; D68.9 Coagulation defect, unspecified; N17.9 Acute kidney failure, unspecified; E87.2 Acidosis; I46.9 Cardiac arrest, cause unspecified; I48.91 Unspecified atrial fibrillation; I95.9 Hypotension, unspecified; E66.9 Obesity, unspecified; M19.90 Unspecified osteoarthritis, unspecified site; I25.10 Atherosclerotic heart disease of native coronary artery without angina pectoris; R13.10 Dysphagia, unspecified; R57.1 Hypovolemic shock
CPT/HCPCS: 31500; 36415; 36600; 71045; 74018; 80053; 80061; 82140; 82550; 82553; 82803; 82962; 83690; 83735; 84443; 84484; 85014; 85018; 85025; 85049; 85610; 86850; 86900; 86901; 87070; 87205; 93005; 93306; 94002; 94003; 94660; 94760; 96374; 96375; 96376; 99285; G0378; J2354; J2501; J3490; C8929; C9113; J0171; J2250; J2405; J7030; J7050; J7070